=== PATIENT | female | born 1950 | race Caucasian/White ===

== ENCOUNTER 2016-06-08 22:46 | Emergency (ER) | payer MEDICARE ==
[2016-06-08 23:50] LABS: Budding Yeast Present (Absent); Urine Bacteria Absent (Absent); Urine Bilirubin Negative (Negative); Urine Glucose Negative (Negative); Urine Nitrite Negative (Negative)
[2016-06-09] MEDS ORDERED: NS 0.9% 1000 ML* 1,000 ML IV ONE ×2 (00:23→01:53)
[2016-06-09] MEDS ORDERED: Ketorolac INJ* 30 MG/ML 1 ML VIAL IV ONE (00:23)
[2016-06-09 00:41] LABS: Hematocrit 41 % (35-47); Hemoglobin 13.9 g/dl (12.0-16.0); Mean Corpuscular HGB Conc 34 g/dl (31-36); Mean Corpuscular Hemoglobin 31 pg (27-31); Mean Corpuscular Volume 90 fL (80-97); Mean Platelet Volume 8 um3 (7.4-10.4); Red Blood Count 4.51 10^6/ul (4.0-5.4); Red Cell Distribution Width 13 % (10.5-15); White Blood Count 9.9 10^3/ul (3.5-10.8)
[2016-06-09 00:59] LABS: Albumin 3.9 g/dL (3.2-5.2); BUN/Creatinine Ratio 25.9 (8-20); C Reactive Protein 9.62 mg/L (< 5.00); Calcium 9.3 mg/dL (8.6-10.3); EGFR Non-African American 70.7 (>60); Potassium 3.9 mmol/L (3.5-5.0); Total Bilirubin 0.5 mg/dL (0.2-1.0); Total Protein 6.9 g/dL (6.4-8.9)
[2016-06-09] MEDS ORDERED: Morphine INJ* 4 MG/ML 1 ML SYRINGE IV ONE (01:53)
[2016-06-09 03:39] VITALS: BP 110/64
--- NOTE | 2016-06-09 07:47 | RAD ---
CLINICAL HISTORY: Right flank pain. COMPARISON: None TECHNIQUE: Noncontrast CT examination of the abdomen and pelvis from the lung bases through the initial tuberosities. FINDINGS: VISUALIZED LUNG BASES: The visualized lung bases are grossly clear. There is no pleural effusion. ABDOMEN AND PELVIS: Evaluation of the solid organs and vasculature is limited without intravenous contrast. The liver, spleen, pancreas and adrenal glands are grossly normal in appearance. The gallbladder is normal. There are least 3 large renal calculi in the left kidney. At the lower pole there is a 1.1 cm calcification. More inferiorly there is a posteriorly located 6 mm calcification. At the mid-level there is a 5 mm calcification. There is no left-sided hydronephrosis. In the right kidney there is a 1.2 cm calcification as well as several additional punctate calcifications. At the right ureterovesical junction there is a 7 mm calcification. There is right-sided mild to moderate hydronephrosis. No calcifications are seen in the urinary bladder. The small and large bowel are not distended.The patient's normal appendix is identified in the right lower quadrant (axial image 118). There is no gross retroperitoneal or mesenteric lymphadenopathy. The pelvic viscera is normal in appearance. The abdominal aorta and iliac arteries are normal in course and diameter. Degenerative changes of the spine include multilevel intervertebral disc height loss, marginal osteophyte formation, lower lumbar level vacuum disc phenomenon as well as endplate sclerosis at L4/L5. There are no sinister appearing bone lesions. IMPRESSION: 1. Bilateral renal calculi as described above including a 7 mm calcification at the right ureterovesical junction with ipsilateral moderate hydroureter nephrosis. 2. Additional chronic and degenerative changes as described in the body of the report.
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
== END 2016-06-09 03:38 | disposition home or self-care (01) ==
LOC: ED 22:46
DX: N23 Unspecified renal colic (principal); N39.0 Urinary tract infection, site not specified; R53.1 Weakness; R50.9 Fever, unspecified; R30.0 Dysuria; R53.83 Other fatigue; R10.84 Generalized abdominal pain
CPT/HCPCS: 36415; 74176; 80053; 81003; 81015; 83605; 83690; 85025; 86140; 87086; 96374; 96375; 99284; J1885; J2270

== ENCOUNTER 2016-09-07 13:34 | Observation (INO) | payer MEDICARE ==
[2016-09-07] MEDS ORDERED: Lidocaine 4% TOPICAL* 50 ML TOP.SOLN TOPICAL ONE (14:32)
--- NOTE | 2016-09-07 14:38 | RAD ---
INDICATION: Head injury. COMPARISON: There are no prior studies available for comparison. TECHNIQUE: Contiguous axial sections of the brain were obtained from the skull base to the vertex without contrast. FINDINGS: The ventricles, cisterns and sulci are enlarged consistent with age-related atrophy. There is a small focal area of decreased density adjacent to the frontal horn of the left lateral ventricle most consistent with an old lacunar infarct. No other focal abnormalities or mass effect are seen. There is no evidence for hemorrhage. No significant focal osseous abnormality is seen. The visualized portion of the paranasal sinuses and mastoid air cells appear clear. IMPRESSION: 1. NO EVIDENCE FOR ACUTE INTRACRANIAL ABNORMALITY. 2. 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
[2016-09-07] MEDS ORDERED: ceFAZolin VIAL(*) 1 GM in NS 0.9% 50 ML* 50 ML IVPB ONE (14:43)
--- NOTE | 2016-09-07 14:45 | RAD ---
INDICATION: Trauma. COMPARISON: Comparison is made with a prior x-ray study of the cervical spine from March 20, 2016. TECHNIQUE: Contiguous axial sections were obtained from the skull base through the T1 vertebra. Images were reconstructed in the sagittal and coronal planes. FINDINGS: The vertebra are in normal alignment. No prevertebral soft tissue swelling or fracture is seen. There is spina bifida occulta posteriorly at the C1 level. At the C3-C4 level there is posterior uncinate process and moderate hypertrophic changes within the facet joint on the left side. No significant spinal canal narrowing is present. There is moderate bilateral neural foraminal narrowing. At the C4-C5 level there is posterior uncinate process spurring which is most prominent posterolaterally on the left side. There is mild spinal canal narrowing and moderate neural foraminal narrowing on the right side and moderate to severe neural foraminal narrowing on the left side. At the C5-C6 level there is posterior uncinate process spurring which causes moderate spinal canal narrowing. There is moderate to severe bilateral neural foraminal narrowing. At the C6-C7 level there is mild posterior uncinate process spurring. No significant spinal canal narrowing is present. There is mild neural foraminal narrowing on the right side and moderate neural foraminal narrowing on the left side. IMPRESSION: 1. NO EVIDENCE FOR FRACTURE OR SUBLUXATION. 2. MODERATE DIFFUSE CERVICAL SPONDYLOSIS.
--- NOTE | 2016-09-07 14:49 | RAD ---
INDICATION: Left wrist injury. TECHNIQUE: 3 views of the left wrist were obtained. FINDINGS: There is a transverse relatively severely comminuted intra-articular fracture of the distal radius. The major distal fragment is displaced one shaft diameter anterior and overriding the proximal fragment. There is also a displaced avulsion fracture of the ulnar styloid process. There is a small amount of air within the soft tissues. IMPRESSION: 1. DISPLACED, COMMINUTED, INTRA-ARTICULAR FRACTURE OF THE DISTAL RADIUS. 2. DISPLACED FRACTURE OF THE ULNAR STYLOID PROCESS.
--- NOTE | 2016-09-07 15:24 | RAD ---
INDICATION: Right knee injury. TECHNIQUE: 2 views of the right knee were obtained. FINDINGS: There is mild soft tissue swelling along the anterior aspect of the knee. There is decreased density in the inferior third of the patella possibly representing a nondisplaced fracture. No other fractures are seen. Joint spaces appear maintained. IMPRESSION: POSSIBLE NONDISPLACED FRACTURE OF THE INFERIOR ASPECT OF THE PATELLA.
[2016-09-07 15:37] LABS: Hematocrit 45 % (35-47); Mean Corpuscular HGB Conc 33 g/dl (31-36); Mean Corpuscular Hemoglobin 31 pg (27-31); Mean Corpuscular Volume 92 fL (80-97); Mean Platelet Volume 9 um3 (7.4-10.4); Red Blood Count 4.93 10^6/ul (4.0-5.4); Red Cell Distribution Width 14 % (10.5-15); White Blood Count 9.5 10^3/ul (3.5-10.8)
[2016-09-07 15:56] LABS: Albumin 4.3 g/dL (3.2-5.2); Calcium 10.2 mg/dL (8.6-10.3); Globulin 3.4 g/dL (2-4); Potassium 4.2 mmol/L (3.5-5.0); Total Bilirubin 0.7 mg/dL (0.2-1.0); Total Protein 7.7 g/dL (6.4-8.9)
[2016-09-07 16:09] LABS: BUN/Creatinine Ratio 22.9 (8-20); EGFR African American 88.2 (>60); EGFR Non-African American 68.6 (>60)
[2016-09-07] MEDS ORDERED: Midazolam* 1 MG/ML 5 ML VIAL (5 MG) ONE (16:49)
[2016-09-07] MEDS ORDERED: fentaNYL* 50 MCG/ML 5 ML VIAL (250 MCG VIAL) ONE (16:49)
[2016-09-07] MEDS ORDERED: Dexamethasone IV* 4 MG/ML 1 ML (4 MG) ONE (16:50)
[2016-09-07] MEDS ORDERED: Ondansetron INJ* 2 MG/ML VIAL ONE (16:50)
[2016-09-07] MEDS ORDERED: Famotidine IV* 10 MG/ML 2 ML (20 mg) ONE (16:50)
[2016-09-07] MEDS ORDERED: Ketorolac INJ* 30 MG/ML 1 ML VIAL ONE (16:50)
[2016-09-07] MEDS ORDERED: Lidocaine 2% PF * 5 ML VIAL ONE (16:50)
[2016-09-07] MEDS ORDERED: Propofol* 10 MG/ML 20 ML BTL IV PUSH ONE (16:50)
[2016-09-07] MEDS ORDERED: Bupivacaine 0.25% EPI 200,000* 30 ML SDV ONE (17:17)
[2016-09-07] MEDS ORDERED: oxyCODONE/Acetamin 5/325 MG* TAB PO PRN ×5 (17:22→21:07)
[2016-09-07] MEDS ORDERED: Morphine INJ* 2 MG/ML 1 ML SYRINGE IV PRN ×2 (17:22→21:00)
[2016-09-07] MEDS ORDERED: Desflurane* 240 ML INH ONE (17:33)
[2016-09-07] MEDS ORDERED: DiMENhydriNATE IV* 50 MG/ML VIAL IV PUSH PRN (17:39)
[2016-09-07] MEDS ORDERED: Ondansetron INJ* 2 MG/ML VIAL IV PRN (17:39)
[2016-09-07] MEDS ORDERED: HYDROmorphone* 1 MG/ML 1 ML SYR IV PRN (17:39)
[2016-09-07] MEDS ORDERED: fentaNYL* 50 MCG/ML 2 ML VIAL (100 MCG VIAL) IV PRN (17:39)
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
[2016-09-07] MEDS ORDERED: Silver Sulfadiazine 1%* 20 GM ONE (18:46)
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
[2016-09-07] MEDS ORDERED: clonazePAM TAB(*) 1 MG PO PRN (20:49)
[2016-09-07] MEDS ORDERED: Acetaminophen TAB* 325 MG PO PRN (21:08)
[2016-09-07] MEDS ORDERED: LORazepam TAB(*) 1 MG PO ONE (21:25)
[2016-09-07] MEDS ORDERED: Ibuprofen TAB* 800 MG PO ONE (21:57)
[2016-09-07] MEDS ORDERED: LORazepam TAB(*) 1 MG ONE (21:57)
[2016-09-07] MEDS: Ibuprofen TAB* 800 MG PO PRN (22:04)
[2016-09-07] MEDS ORDERED: HYDROmorphone* 1 MG/ML 1 ML SYR IV SLOW PU ONE (23:11)
[2016-09-07] MEDS ORDERED: HYDROmorphone* 1 MG/ML 1 ML SYR ONE (23:23)
[2016-09-07] MEDS: ceFAZolin VIAL(*) 1 GM in NS 0.9% 50 ML* 50 ML IVPB SCH (23:44)
[2016-09-08] MEDS: Ibuprofen TAB* 800 MG PO PRN (06:17)
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
[2016-09-08 06:29] LABS: HDL Cholesterol 49.5 mg/dL
[2016-09-08] MEDS: ceFAZolin VIAL(*) 1 GM in NS 0.9% 50 ML* 50 ML IVPB SCH ×2 (07:34→17:36)
[2016-09-08] MEDS: traMADol TAB* 50 MG PO PRN ×2 (07:41→16:47)
[2016-09-08] MEDS ORDERED: Acetaminop/Codeine 30 MG TAB* 1 TAB (300 MG/30 MG) PO PRN (09:41)
[2016-09-08] MEDS ORDERED: Docusate CAP* 100 MG PO PRN (10:51)
--- NOTE | 2016-09-08 11:27 | PN ---
Progress Note - Progress Note Date of Service: 09/08/16 SOAP: Subjective: []Patient seen at bedside. Alert and oriented. She complains of left wrist pain, minimal right knee pain. She takes Tramadol regularly for chronic back pain but states that is has made her dizzy. She would like to try codeine for pain. She has been up to the BR with minimal assistance. She feels she would like to go home this afternoon. Objective: [] Vital Signs Temp 98.0 F 09/08/16 07:38 Pulse 67 09/08/16 07:38 Resp 16 09/08/16 10:44 BP 106/59 09/08/16 07:38 Pulse Ox 96 09/08/16 07:38 Intake & Output 09/07/16 09/08/16 09/08/16 18:59 06:59 18:59 Intake Total 100 1600 Output Total 550 350 Balance 100 1050 -350 Weight 192 lb 193 lb Intake: IV Fluids 100 800 LR 800 Oral 800 Output: Urine 550 350 Other: # Bowel Movements 0 Estimated Blood Loss MINIMAL Comment Laboratory Results - last 24 hr 09/07/16 09/07/16 09/07/16 15:30 15:30 15:30 WBC 9.5 RBC 4.93 Hgb 15.0 Hct 45 MCV 92 MCH 31 MCHC 33 RDW 14 Plt Count 205 MPV 9 Neut % (Auto) 77.6 Lymph % (Auto) 16.3 L [place] % (Auto) 4.7 Eos % (Auto) 0.7 Baso % (Auto) 0.7 Absolute Neuts (auto) 7.4 Absolute Lymphs (auto) 1.6 Absolute Monos (auto) 0.4 Absolute Eos (auto) 0.1 Absolute Basos (auto) 0.1 Absolute Nucleated RBC 0 Nucleated RBC % 0 INR (Anticoag Therapy) 1.79 H Sodium 138 Potassium 4.2 Chloride 106 Carbon Dioxide 26 Anion Gap 6 BUN 19 Creatinine 0.83 Est GFR ( Amer) 88.2 Est GFR (Non-Af Amer) 68.6 BUN/Creatinine Ratio 22.9 H Glucose 91 Calcium 10.2 Total Bilirubin 0.70 AST 26 ALT 25 Alkaline Phosphatase 58 Total Protein 7.7 Albumin 4.3 Globulin 3.4 Albumin/Globulin Ratio 1.3 Triglycerides Cholesterol LDL Cholesterol HDL Cholesterol 09/08/16 05:32 WBC RBC Hgb Hct MCV MCH MCHC RDW Plt Count MPV Neut % (Auto) Lymph % (Auto) [place] % (Auto) Eos % (Auto) Baso % (Auto) Absolute Neuts (auto) Absolute Lymphs (auto) Absolute Monos (auto) Absolute Eos (auto) Absolute Basos (auto) Absolute Nucleated RBC Nucleated RBC % INR (Anticoag Therapy) Sodium Potassium Chloride Carbon Dioxide Anion Gap BUN Creatinine Est GFR ( Amer) Est GFR (Non-Af Amer) BUN/Creatinine Ratio Glucose Calcium Total Bilirubin AST ALT Alkaline Phosphatase Total Protein Albumin Globulin Albumin/Globulin Ratio Triglycerides 75 Cholesterol 162 LDL Cholesterol 98 HDL Cholesterol 49.5 Left UE splinted and in shoulder immobilizer, moving all digits well with minimal edema. sensation and circulation intact distally Right knee SAMANTHA is dry and intact under POKI, +DF/PF right ankle, sensation intact Assessment: []s/p irrigation, debridement and repair soft tissue right knee right open non displaced patella fracture s/p I&D with closed reduction and splinting, left intra articular distal radius/ ulnar styloid fracture POD #1 Plan: []PT/OT consults place WBAT RLE with brace on NWB LUE/ sling discharge home today f/u with Dr. Gallardo this , call for appointment
[2016-09-08 17:38] VITALS: BP 156/76
[2016-09-08] MEDS ORDERED: Enoxaparin(*) 40 MG/0.4 ML SYR SUBCUT SCH (18:00)
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
== END 2016-09-08 17:00 | disposition home or self-care (01) ==
LOC: ED 13:34 → OR 18:42 → SSU 20:06 → INTOOBSV 20:06
PROVIDERS: ADMIT Orthopaedic Surgery; ATTEND Orthopaedic Surgery
PROC: 0QSDXZZ Reposition Right Patella, External Approach (ICD-10-PCS; 2016-09-07)
PROC: 0PSJXZZ Reposition Left Radius, External Approach (ICD-10-PCS; principal; 2016-09-07 17:55)
PROC: 0PSLXZZ Reposition Left Ulna, External Approach (ICD-10-PCS; 2016-09-07 17:55)
DX: S82.001B Unspecified fracture of right patella, initial encounter for open fracture type I or II (principal); S52.502B Unspecified fracture of the lower end of left radius, initial encounter for open fracture type I or II; S52.612B Displaced fracture of left ulna styloid process, initial encounter for open fracture type I or II; S00.81XA Abrasion of other part of head, initial encounter; S00.31XA Abrasion of nose, initial encounter; V18.4XXA Pedal cycle driver injured in noncollision transport accident in traffic accident, initial encounter; Y92.410 Unspecified street and highway as the place of occurrence of the external cause; Z86.711 Personal history of pulmonary embolism; Z79.01 Long term (current) use of anticoagulants; E78.00 Pure hypercholesterolemia, unspecified; M54.5 Low back pain; G89.29 Other chronic pain; F41.9 Anxiety disorder, unspecified; Z79.899 Other long term (current) drug therapy
CPT/HCPCS: 36415; 70450; 72125; 80053; 80061; 85025; 85610; 94760; 96365; 96372; 96375; 99291; A9270-GY; G0378; J0690; J1100; J1170; J1650; J1885; J2250; J2405; J2704; J3010

== ENCOUNTER 2017-01-01 11:24 | Day surgery (SDC) | payer MEDICARE ==
[~2017-01-01 11:24] MED LIST: Buffered Lidocaine 0.9% SYRIN* 5 ML/SYR SYRINGE INTRADERM ONE; Dexamethasone IV* 4 MG/ML 1 ML (4 MG) IV SLOW PU ONE; Dexamethasone IV* 4 MG/ML 1 ML (4 MG) ONE; Famotidine IV* 10 MG/ML 2 ML (20 mg) IV ONE; Famotidine IV* 10 MG/ML 2 ML (20 mg) ONE
[2017-01-01] MEDS ORDERED: ceFAZolin 2 GM PREMIX (*) 2 GM/50 ML BAG IVPB ONE (11:37)
[2017-01-01] MEDS ORDERED: Buffered Lidocaine 0.9% SYRIN* 5 ML/SYR SYRINGE ONE (12:01)
[2017-01-01] MEDS ORDERED: Midazolam* 1 MG/ML 2 ML VIAL (2 MG) ONE (13:27)
[2017-01-01] MEDS ORDERED: fentaNYL* 50 MCG/ML 2 ML VIAL (100 MCG VIAL) ONE ×2 (13:27→14:21)
[2017-01-01] MEDS ORDERED: Bupivacaine 0.25% SDV* 30 ML ONE (13:27)
[2017-01-01] MEDS ORDERED: Lidocaine 2% PF * 5 ML VIAL ONE (13:28)
[2017-01-01] MEDS ORDERED: Propofol* 10 MG/ML 20 ML BTL IV PUSH ONE (13:28)
[2017-01-01] MEDS ORDERED: Ketorolac INJ* 30 MG/ML 1 ML VIAL ONE (14:03)
[2017-01-01] MEDS ORDERED: EPHEDrine (Pressors)* 50 MG/ML VIAL ONE (14:04)
[2017-01-01] MEDS ORDERED: Ondansetron INJ* 2 MG/ML VIAL ONE (14:16)
[2017-01-01 15:18] VITALS: BP 116/75
--- NOTE | 2017-01-02 12:12 | OP ---
OPERATIVE REPORT: DATE OF OPERATION: 01/01/17 - DAWNA DATE OF : 48 SURGEON: Bennett Gregory MD BATCH ROLLER OPERATOR: GINGER Aguayo ANESTHESIOLOGIST: Enrique Kebede MD ANESTHESIA: General. PRE-OP DIAGNOSIS: Retained left distal radius dorsal spanning plate. POST-OP DIAGNOSIS: Retained left distal radius dorsal spanning plate. OPERATIVE PROCEDURE: 1. Removal of left distal radius dorsal spanning plate and screws. 2. Removal of left radial styloid pin through a separate incision. INDICATIONS: Elva had an open distal radius fracture that was treated with dorsal spanning plate in [place] by Dr. Baeza. It has been enough time, the fracture has healed. She now comes to the operating room for removal of plate and screws and the radial styloid pin. ESTIMATED BLOOD LOSS: 2 mL. COMPLICATIONS: None. FINDINGS: As expected. DESCRIPTION OF PROCEDURE: Elva was seen in the preoperative holding area. The correct side, site, and procedure were identified. We came back to the operating room where the arm was prepped and draped in the usual fashion. A time-out was performed. I began by exsanguinating the arm with the Esmarch and the tourniquet was inflated to 250 mmHg. I then opened up her dorsal forearm wound utilizing the same incision, dissection was carried down in the plane between the proximal aspect of the first dorsal compartment muscles and the second dorsal compartment tendons was developed to expose the plate and four proximal screws were removed. I then opened up the distal incision over the dorsal second metacarpal. I came just radial to the extensor tendons and the soft tissue overlying the plate was incised longitudinally. Four distal screws were removed. I then broke up all of the adhesions with the use of a hood elevator, the plate was removed by pulling it out of the proximal wound. I then made a 1-cm incision over the radial styloid pin. Dissection was carried down sharply with the knife longitudinally. The proximal aspect of the pin was exposed. A needle lease purchase driver was used to remove the radial styloid pin. I then irrigated out all the wounds. Skin was closed with 5-0 nylon suture. Wounds were infiltrated with 0.25% plain Marcaine. The wounds were dressed with Xeroform, 4x4's, sterile Webril, and Narinder bandage. She was then woken up and taken to the recovery room in stable condition. Tourniquet was deflated after dressings were in place. [id number]/[facility] #: [id number] STAN
--- NOTE | 2017-01-02 19:09 | RAD ---
CPT II Codes: 6045F INDICATION: Traumatic left distal radius fracture Fluoroscopic services provided for referring physician. 4 seconds of fluoroscopy time was used. There has been prior hardware noted and removed. This placement of new hardware. IMPRESSION: Fluoroscopic services provided for referring physician for internal fixation distal left radius fracture with a plate and screws. Previously identified hardware has been removed.
== END 2017-01-01 15:36 | disposition home or self-care (01) ==
LOC: OREAST 11:24
PROVIDERS: ATTEND Orthopaedic Surgery Hand Surgery
DX: S52.502D Unspecified fracture of the lower end of left radius, subsequent encounter for closed fracture with routine healing (principal); X58.XXXD Exposure to other specified factors, subsequent encounter; Y92.9 Unspecified place or not applicable; Z79.01 Long term (current) use of anticoagulants; Z86.711 Personal history of pulmonary embolism; E03.9 Hypothyroidism, unspecified; E78.5 Hyperlipidemia, unspecified
CPT/HCPCS: 76000; 88300; J0690; J1100; J1885; J2250; J2405; J2704; J3010

== ENCOUNTER 2017-09-08 04:07 | Day surgery (SDC) | payer MEDICARE ==
[2017-09-08] MEDS ORDERED: Metoclopramide IV* 5 MG/ML 2 ML VIAL IV ONE (04:30)
[2017-09-08] MEDS ORDERED: NS 0.9% 1000 ML* 1,000 ML IV ONE (04:30)
[2017-09-08] MEDS ORDERED: Morphine VIAL* 4 MG/ML VIAL (1 ml vial) IV ONE (04:31)
[2017-09-08 05:08] LABS: ABS Basophils 0 10^3/ul (0-0.2); ABS Eosinophils 0.2 10^3/ul (0-0.6); ABS Lymphocytes 1.5 10^3/ul (1.0-4.8); ABS Monocytes 0.3 10^3/ul (0-0.8); ABS Neutrophils 6.4 10^3/ul (1.5-7.7); ABS Nucleated RBC 0 10^3/ul; Eosinophil % 1.9 % (0-6); Hematocrit 43 % (35-47); Hemoglobin 14.5 g/dl (12.0-16.0); Lymphocyte % 17.4 % (25-47); Mean Corpuscular HGB Conc 34 g/dl (31-36); Mean Corpuscular Hemoglobin 31 pg (27-31); Mean Corpuscular Volume 91 fL (80-97); Nucleated Red Blood Cells % 0; Platelet Count 220 10^3/ul (150-450); Red Blood Count 4.69 10^6/ul (4.00-5.40); Red Cell Distribution Width 13 % (10.5-15); White Blood Count 8.4 10^3/ul (3.5-10.8)
[2017-09-08 05:16] LABS: INR 2.13 (0.77-1.02)
[2017-09-08 05:25] LABS: EGFR Non-African American 61.5 (>60)
[2017-09-08 06:42] LABS: Urine Appearance Cloudy; Urine Blood 3+ (Negative); Urine Color Yellow; Urine Ketones Negative (Negative); Urine Protein 2+(100 mg/dL) (Negative); Urine Red Blood Cell 3+(>10/hpf) (Absent); Urine Specific Gravity 1.021 (1.010-1.030); Urine Urobilinogen Negative (Negative); Urine White Blood Cell 3+(>20/hpf) (Absent)
[2017-09-08] MEDS ORDERED: Piperacillin/Tazobac ADVAN(*) 3.375 GM in NS 0.9% 100 ML* 100 ML IVPB ONE (06:59)
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
--- NOTE | 2017-09-08 08:06 | RAD ---
Indication: Abdominal pain. CT of the abdomen and pelvis was performed without oral or IV contrast administration. Coronal and sagittal reconstructed images were obtained. Lung bases demonstrate no pleural fluid, nodules or masses. Heart is of normal size without evidence of pericardial effusion. Liver is normal in size. No focal lesions or intrahepatic ductal dilatation is noted. The gallbladder demonstrates no calcified gallstones. No pericholecystic fluid or wall thickening is noted. The spleen is normal in size. No adrenal masses are noted. The kidneys demonstrates left hydronephrosis and hydroureter. There is a calculus in the mid left ureter measuring 9 mm. The distal left ureter is collapsed. Additional calculi is noted in the left kidney measuring 8 mm in the lower pole and 9 mm in the posterior lower pole, right kidney 12 mm calcification is noted with other smaller nonobstructing calculi. Aorta is normal in size. No aneurysmal dilatation is noted. No retroperitoneal lymphadenopathy is noted. Dilated loops of bowel are noted. CT of the pelvis demonstrates uterus and ovaries to be unremarkable. No pelvic adenopathy is noted. No hernias are noted. IMPRESSION: Left hydronephrosis with 9 x 6 mm calculus in the mid left ureter. Nonobstructing calculi are noted in both kidneys.
--- NOTE | 2017-09-08 10:07 | HP ---
CC: Dr. Varghese * DATE OF PLANNED ADMISSION AND SURGERY: 09/08/2017. HISTORY OF PRESENT ILLNESS: Ms. Goodman is a 67-year-old, white female who is admitted with a proximal left ureteral calculus for cystoscopy, placement of left ureteral stent, possible ureteroscopy and laser lithotripsy. I have been following Ms. Goodman for several years because of bilateral renal calculi. In May 2010, she required a right ureteroscopy laser lithotripsy and right ureteral stent placement. She is known to have bilateral, asymptomatic, non obstructing renal calculi; no treatment was done because the patient is on long-term anticoagulation with Coumadin because of a history of pulmonary embolism. She was doing fine until early this morning when she presented to the emergency room with symptoms of left renal colic. This was associated with nausea and vomiting. She did not have any fever, chills, voiding symptoms, or gross hematuria. In the emergency room, she had a noncontrast CT of the abdomen and pelvis which showed left hydroureteronephrosis caused by a 1 cm calculus in the proximal left ureter. There were two nonobstructing left renal calculi measuring 1 cm each in a mid and lower pole calices. She also had a 12 mm calculus in the lower pole calyx of the right kidney. No right hydronephrosis. Her lab work in the emergency room showed a creatinine of 0.9. Her white count was normal. Her urine analysis was positive for blood, for white cells, and esterase, negative nitrite. She was afebrile on admission. PAST MEDICAL HISTORY AND SYSTEM REVIEW: The patient has hypothyroidism and is on thyroid replacement. She has a history of pulmonary embolism and she is maintained on chronic anticoagulation with Warfarin. She has hyperlipidemia, on Simvastatin 40 mg daily. She has a history of anxiety and depression. She is a nonsmoker. ALLERGIES: THE PATIENT REPORTS HAVING INTOLERANCE TO CIPRO. PHYSICAL EXAMINATION GENERAL: Overweight, white female who is in moderate pain. VITAL SIGNS: She is afebrile. Blood pressure 140/70. LUNGS: Clear. HEART: Regular and rhythmic, no murmurs. ABDOMEN: Soft, no masses, no tenderness. She has mild left CVA tenderness. EXTREMITIES: Normal. IMPRESSION: Left renal colic secondary to a 1 cm calculus in the proximal left ureter. Bilateral nonobstructing renal calculi. History of pulmonary embolism, on chronic anticoagulation with Warfarin. PLAN: Cystoscopy and placement of left ureteral stent. If the stone has migrated further down and reachable, a left ureteroscopy might be performed. It is likely that she will require left ureteroscopy and laser lithotripsy at a later date after making sure that the urinary tract infection is resolved. I discussed the above plans in detail with the patient. All of her questions were answered. [id number]/[facility] #: [id number] STAN
[2017-09-08] MEDS ORDERED: Buffered Lidocaine 0.9% SYRIN* 5 ML/SYR SYRINGE INTRADERM ONE (16:30)
[2017-09-08] MEDS ORDERED: Sodium Citrate/Citric Acid* 15 ML UDC PO ONE (16:30)
[2017-09-08] MEDS ORDERED: Dexamethasone IV* 4 MG/ML 1 ML (4 MG) IV SLOW PU ONE (16:30)
[2017-09-08] MEDS ORDERED: Ondansetron INJ* 2 MG/ML VIAL IV ONE (16:30)
[2017-09-08] MEDS ORDERED: Propofol* 10 MG/ML 20 ML BTL IV PUSH ONE ×2 (16:31→18:30)
[2017-09-08] MEDS ORDERED: Midazolam* 1 MG/ML 2 ML VIAL (2 MG) ONE ×2 (17:51→20:10)
[2017-09-08] MEDS ORDERED: fentaNYL* 50 MCG/ML 2 ML VIAL (100 MCG VIAL) ONE ×2 (17:51→20:10)
[2017-09-08] MEDS ORDERED: Iohexol 180 (CONTRAST) 10 ML SDV IV ONE (17:52)
[2017-09-08] MEDS ORDERED: Lidocaine 2% PF * 5 ML VIAL ONE (18:30)
[2017-09-08] MEDS ORDERED: Dexamethasone IV* 4 MG/ML 1 ML (4 MG) ONE (18:30)
[2017-09-08] MEDS ORDERED: Famotidine IV* 10 MG/ML 2 ML (20 mg) ONE (18:30)
[2017-09-08] MEDS ORDERED: Ondansetron ODT TAB* 4 MG PO PRN (18:39)
[2017-09-08] MEDS ORDERED: Naloxone* 0.4 MG/ML 1 ML VIAL IV PRN (18:39)
[2017-09-08] MEDS ORDERED: DiMENhydriNATE IV* 50 MG/ML VIAL IV PUSH PRN (18:39)
[2017-09-08] MEDS ORDERED: fentaNYL* 50 MCG/ML 2 ML VIAL (100 MCG VIAL) IV PRN (18:39)
[2017-09-08] MEDS ORDERED: Acetaminophen TAB* 325 MG PO PRN (18:39)
--- NOTE | 2017-09-08 19:06 | RAD ---
INDICATION: LEFT ureteral stent placement. COMPARISON: CT abdomen of the same date. TECHNIQUE: 11 seconds fluoroscopy. FINDINGS: Spot images document LEFT retrograde pyelogram with moderately severe caliectasis and placement of a LEFT ureteral stent. IMPRESSION: Procedural fluoroscopy. CPT II Codes: G9500
[2017-09-08 19:55] VITALS: BP 133/81
--- NOTE | 2017-09-08 20:02 | RAD ---
Indication: Cystogram and LEFT ureteral stent placement. Comparison: No relevant prior exams available on the [facility] PACS for comparison. Technique: Supine view of the abdomen. REPORT AND IMPRESSION: LEFT ureteral stent in place. Bilateral intrarenal collecting system stones appear unchanged compared with the CT of the same date. The proximal LEFT ureteral stone is no longer visualized. Unremarkable soft tissue contours and bowel gas pattern.
--- NOTE | 2017-09-09 12:00 | ED ---
Domenic Dean Angela, scribed for Ignacio Giang MD on 09/08/17 at 0712 . Progress - Progress Note Progress Note: This pt was signed out by Dr. Baeza at shift change, pending disposition, awaiting Dr. Armstrong's consult. CT Abdomen/Pelvis, as read by radiologist IMPRESSION: Left hydronephrosis with 9 x 6 mm calculus in the mid left ureter. Nonobstructing calculi are noted in both kidneys. Dr. Giang has reviewed this radiology report. Re-Evaluation - Re-Evaluation First Eval Re-Evaluation Time: 08:14 Comment: Dr. Armstrong, urologist, in to see the pt. Course/Dx - Course Course Of Treatment: Dr. Armstrong came and evaluated the pt. After his evaluation, Dr. Armstrong reprots he will take the pt to the OR this afternoon. Pt will be admitted to [facility]. - Diagnoses Provider Diagnoses: Left ureteral calculus Discharge - Sign-Out/Discharge Documenting (check all that apply): Discharge/Admit/Transfer - Admit, Receiving Sign-Out Receiving patient FROM: Mansi Baeza - Discharge Plan Condition: Stable Disposition: ADMITTED TO [facility] - Billing Disposition and Condition Condition: STABLE Disposition: Admitted to [facility] The documentation as recorded by the Domenic arreola Angela accurately reflects the service I personally performed and the decisions made by , Ignacio Giang MD.
--- NOTE | 2017-10-02 04:02 | OP ---
DATE OF OPERATION: 09/08/17 - [facility] DATE OF : 48 SURGEON: Jose Alfredo Armstrong MD ANESTHESIOLOGIST: Samina Figueroa MD ANESTHESIA: General. PRE-OP DIAGNOSES: 1. Proximal left ureteral calculus (1 cm). 2. Bilateral nonobstructing renal calculi. POST-OP DIAGNOSIS: 1. Proximal right ureteral calculus (1 cm.) 2. Bilateral nonobstructing renal calculi. OPERATIVE PROCEDURE: 1. Cystoscopy. 2. Left retrograde pyelography and placement of left ureteral stent (6-Uzbek). INDICATIONS: Ms. Goodman is a 67-year-old white female who is a known to have bilateral renal calculi. The stones have been observed because they have been asymptomatic, and pt on warfarin because of history of pulmonary embolism. She presented this morning to the emergency room with symptoms of left renal colic and had a noncontrast CT of the abdomen and pelvis, which showed a 1 cm obstructing calculus in the proximal left ureter, and bilateral nonobstructing renal calculi. Because of the above history and findings and the size of the obstructing left ureteral stone, the patient is taken to the operating room on an urgent basis for placement of left ureteral stent. PATHOLOGY AT CYSTOSCOPY: The bladder mucosa looked normal. There were no suspicious bladder lesions seen. At fluoroscopy, a 1-cm radiopaque calculus was noted in the proximal to mid left ureter. Upon left retrograde pyelography, there was moderate to severe left hydronephrosis. The urine from the left kidney looked concentrated but not cloudy. DESCRIPTION OF PROCEDURE: After successful general anesthesia, the patient was placed in the lithotomy position and was prepped and draped for a cystoscopy. Cystoscopy was performed. The bladder was carefully inspected and the above findings were noted. A hybrid guidewire was then introduced into the left orifice and positioned in the area of the renal pelvis. A left retrograde pyelography was performed. A size 6- Uzbek stent was then placed with the proximal end coiling in the renal pelvis and the distal end coiling inside the bladder. There was good drainage of contrast from the kidney and no extravasation. The patient tolerated the procedure well and left the operating room in good condition. The plan is to obtain a KUB postoperatively. The patient will require a left ureteroscopy and laser lithotripsy at a later date for definitive treatment of the obstructing ureteral calculus. [id number]/[facility] #: [id number] [facility]
== END 2017-09-08 20:03 | disposition home or self-care (01) ==
LOC: ED 04:07 → OR 11:57
PROVIDERS: ATTEND Urology
DX: N13.2 Hydronephrosis with renal and ureteral calculous obstruction (principal); R10.32 Left lower quadrant pain; Z87.442 Personal history of urinary calculi; R11.10 Vomiting, unspecified; E03.9 Hypothyroidism, unspecified; E78.5 Hyperlipidemia, unspecified; F41.8 Other specified anxiety disorders; Z86.711 Personal history of pulmonary embolism; Z79.01 Long term (current) use of anticoagulants
CPT/HCPCS: 36415; 74018; 74176; 74420; 80053; 81003; 81015; 82150; 83690; 85025; 85610; 85730; 86140; 87086; 99285; C1876; J1100; J2250; J2270; J2543; J2704; J2765; J3010

== ENCOUNTER → 2017-09-14 06:10 | Day surgery (SDC) | payer MEDICARE ==
--- NOTE | 2017-09-11 11:30 | HP ---
CC: Dr. Varghese HISTORY AND PHYSICAL: DATE OF PLANNED ADMISSION AND SURGERY: 09/14/17 HISTORY OF PRESENT ILLNESS: Ms. Goodman is a 67-year-old white female who is admitted with a left ureteral calculus, status post placement left ureteral stent for cystoscopy, left ureteroscopy, laser lithotripsy, and left ureteral stent exchange. Please refer to the detailed history and physical on Ms. Goodman's admission dated 09/08/17. The patient presented with on 09/08/2017 with symptoms of left renal colic and CT showed an obstructing 1 cm calculus in the proximal left ureter, and bilateral non obstructing renal calculi. Her urine showed some white cells. She did not have any fever or chills. She is on chronic anticoagulation with warfirin because of history of P.E. She underwent cystoscopy and urgent placement of left ureteral stent on . Postoperative KUB showed bilateral nonobstructing renal calculi and a faint calculus in the proximal left ureter adjacent to the ureteral stent. She was placed postoperatively on Bactrim. It gave her GI upset, nausea & vomiting and feeling of chillness. Her INR was noted to be elevated at 3.4 and the Bactrim was discontinued and she is going to be off the Coumadin for a few days. No other changes in her health. Repeat physical examination is within normal with normal vital signs and afebrile. She is on all her previous medications. Impression: Left ureteral calculus, status post placement Lt ureteral stent. Bilateral non obstructing renal calculi. History of pulmonary embolism on chronic anticoagulation. The plan is to proceed with cystoscopy, left ureteroscopy, and laser lithotripsy with left ureteral stent exchange. Because of the history of pulmonary embolism, the plan is to do the procedure while she is on warfarin. I discussed the above plans with the patient. All her questions were answered. [id number]/[facility] #: [id number] [facility]PITALBriana
[~2017-09-14 06:10] MED LIST changes: +Acetaminophen TAB* 325 MG PO PRN; +Buffered Lidocaine 0.9% SYRIN* 5 ML/SYR SYRINGE ONE; -Dexamethasone IV* 4 MG/ML 1 ML (4 MG) IV SLOW PU ONE; +EPHEDrine (Pressors)* 50 MG/ML VIAL ONE; +EPINEPHRINE 1 MG/ML 1 ML VIAL ONE; -Famotidine IV* 10 MG/ML 2 ML (20 mg) IV ONE; -Famotidine IV* 10 MG/ML 2 ML (20 mg) ONE; +Iohexol 180 (CONTRAST) 10 ML SDV IV ONE; +Ketorolac INJ* 30 MG/ML 1 ML VIAL ONE; +Lidocaine 2% PF * 5 ML VIAL ONE; +Metoclopramide IV* 5 MG/ML 2 ML VIAL IV PRN; +Midazolam* 1 MG/ML 2 ML VIAL (2 MG) ONE; +Midazolam* 1 MG/ML 5 ML VIAL (5 MG) ONE; +Naloxone* 0.4 MG/ML 1 ML VIAL IV PRN; +Ondansetron ODT TAB* 4 MG ONE; +Oxybutynin TAB* 5 MG ONE; +Phenylephrine INJ* 10 MG/ML 1 ML VIAL (10 MG) ONE; +Propofol* 10 MG/ML 20 ML BTL IV PUSH ONE; +Sevoflurane* 1 BTL ONE; +Sterile Water for Inj* 10 ML ONE; +Sterile Water for Inj* 20 ML ONE; +Succinylcholine* 20 MG/ML 10 ML VIAL ONE; +cefTRIAXone(*) 2 GM ADDV.VIAL IVPB ONE; +cefTRIAXone(*) 2 GM in NS 0.9% 100 ML* 100 ML IVPB ONE; +fentaNYL* 50 MCG/ML 2 ML VIAL (100 MCG VIAL) IV PRN; +fentaNYL* 50 MCG/ML 2 ML VIAL (100 MCG VIAL) ONE
[2017-09-14 07:13] LABS: INR 1.4 (0.77-1.02)
--- NOTE | 2017-09-14 09:12 | RAD ---
INDICATION: Left ureteroscopy /lithotripsy /stent exchange COMPARISON: KUB September 11, 2017 FINDINGS: 6 seconds of fluoroscopy were provided for the urology department. Fluoroscopic spot imaging of the abdomen were obtained for operative control. A final images demonstrate placement of a left ureteral stent in expected position. CPT II Codes: G9500 (fluoro time doc)
[2017-09-14 10:02] VITALS: BP 111/62
--- NOTE | 2017-09-14 13:14 | OP ---
CC: Dr. Varghese * DATE OF OPERATION: 09/14/17 - [facility] DATE OF : 48 SURGEON: Jose Alfredo Armstrong MD ANESTHESIOLOGIST: Dr. Arriaga. ANESTHESIA: General. PRE-OP DIAGNOSES: 1. Proximal left ureteral calculus (1 cm). 2. Status post placement of left ureteral stent. POST-OP DIAGNOSES: 1. Proximal left ureteral calculus (1 cm). 2. Status post placement of left ureteral stent. OPERATIVE PROCEDURE: 1. Cystoscopy. 2. Left ureteroscopy and laser lithotripsy of proximal left ureteral calculus. 3. Left retrograde pyelography and placement of left ureteral stent (6-Beninese). INDICATION FOR PROCEDURE: Ms. Goodman is a 67-year-old white female who is a known stone former and whose stones have been observed because she is on Coumadin because of history of pulmonary embolism. She has been asymptomatic until a week ago when she presented with symptoms of left renal colic. CT showed an 1 cm obstructing calculus in the proximal left ureter and bilateral nonobstructing renal calculi. The patient had urgent placement of a left ureteral stent one week ago. She is now admitted for definitive treatment of the stone. The patient is still on anticoagulation with Coumadin. PATHOLOGY AT CYSTOSCOPY: There was bloody urine coming from the left orifice around the stent. Upon left ureteroscopy, an 1-cm calculus was noted in the proximal left ureter about 3 cm distal to the ureteropelvic junction. The calculus was impacted. It had the gross appearance of a calcium oxalate stone. There was hyperemia and edema of the ureteral mucosa adjacent to the stone. The stone fragmented easily with the laser. DESCRIPTION OF PROCEDURE: After successful general anesthesia, the patient was placed in the lithotomy position and was prepped and draped for cystoscopy. Cystoscopy was performed and the bladder was inspected. The distal limb of the left ureteral stent was brought out to the level of the urethral meatus. A hybrid flexible tip guidewire was introduced into the lumen of the stent and the proximal end was positioned in the renal pelvis and the stent was removed. The guidewire was kept in place. A size 6.5 semirigid ureteroscope was then introduced inside the bladder and passed without difficulty inside the left ureter along side the guidewire. The calculus was identified. Using a 550 micron laser fiber, the stone was gently broken into smaller fragments, then disimpacted. Using the spiral basket, the larger fragments were extracted and sent for stone analysis. A final inspection showed no residual stone fragments. There was edema and hyperemia in the ureteral wall adjacent to the stone, but there was no evidence of any ureteral perforation. Retrograde pyelography was then performed. A size 6- Beninese stent was then placed with the proximal end coiling in the renal pelvis and the distal end coiling inside the bladder. There was good drainage of contrast from the kidney and no extravasation. The patient tolerated the procedure well and left the operating room in good condition. The plan is to keep the stent in place for about 10 days and to be removed in the office under local anesthesia. [id number]/[facility] #: [id number] STAN
== END | disposition home or self-care (01) ==
LOC: OR 06:10
PROVIDERS: ATTEND Urology
DX: N20.2 Calculus of kidney with calculus of ureter (principal); Z87.442 Personal history of urinary calculi; Z86.711 Personal history of pulmonary embolism; Z79.01 Long term (current) use of anticoagulants; E78.5 Hyperlipidemia, unspecified; E03.9 Hypothyroidism, unspecified
CPT/HCPCS: 36415; 74420; 82365; 85610; 88300; A9270-GY; C1876; J0330; J0696; J1100; J1885; J2250; J2704; J3010

== ENCOUNTER → 2018-10-15 | Day surgery (SDC) | payer MEDICARE ==
--- NOTE | 2018-10-13 00:17 | HP ---
CC: Dr. Va Zamarripa * HISTORY AND PHYSICAL: DATE OF PLANNED ADMISSION AND SURGERY: 10/15/18 HISTORY OF PRESENT ILLNESS: Ms. Goodman is a 68-year-old white female who is admitted with multiple proximal left ureteral calculi for cystoscopy, left ureteroscopy, laser lithotripsy and left ureteral stent insertion. Ms. Goodman is a known stone former and had required several endoscopic procedures over the last several years. The last procedure was performed one year ago and at that time, she underwent a left ureteroscopy and laser lithotripsy of a 1-cm proximal left ureteral calculus. She was then noted to have residual bilateral renal calculi. The calculi were observed because she was asymptomatic and because she was on warfarin because of history of pulmonary embolism. The patient has continued to do well and presented earlier this week for her routine follow-up renal ultrasound. The renal ultrasound done in the office showed no left renal calculi and there was [id number]-[id number] left hydronephrosis and 1.2 cm echogenic foci located in the proximal left ureter about 4 cm distal to the ureteropelvic junction. Also was noted a non-obstructing 1.6-cm calculus in the upper pole of the right kidney. Bilateral ureteral jets were noted. The patient then had a KUB and a noncontrast CT of the abdomen and pelvis. The CT confirmed the presence of a nonobstructing 1.7 cm calculus in the upper pole of the right kidney, [id number] left hydronephrosis and 3 calculi noted in the proximal left ureter. The calculi total size was about 1.2 cm. No other abnormal renal or ureteral calcifications were noted. The study also showed an incidental finding of a 3.5 cm cystic mass of the head of the pancreas. It seems to have increased in size compared to her CT's 1 year and 2 years ago. There was no dilatation of the pancreatic duct or of the biliary duct. No retroperitoneal lymphadenopathy was noted. The radiologist recommended obtaining additional imaging with contrast for better visualization of that pancreatic mass. The patient denies any symptoms of abdominal pain or weight loss or jaundice. PAST MEDICAL HISTORY AND SYSTEM REVIEW: The patient has history of pulmonary embolism that occurred several years ago. She had been maintained on chronic anticoagulation with warfarin. She has hypothyroidism, on thyroid replacement. She has hyperlipidemia, maintained on simvastatin 40 mg daily. She takes tramadol as needed for pain and clonazepam 1 mg at bedtime. ALLERGIES: She denies any allergies to medications, but she reports having intolerance to Cipro. FAMILY HISTORY: Negative. SOCIAL HISTORY: She is a nonsmoker. She denies any recreational drug use. PHYSICAL EXAMINATION GENERAL: Overweight white female, who is in no pain and who has no jaundice. VITAL SIGNS: Blood pressure 120/80, pulse of 80. LUNGS: Clear. HEART: Regular and rhythmic, no murmurs. ABDOMEN: Soft. No masses, no tenderness, and no CVA tenderness. EXTREMITIES: Legs show no edema. IMPRESSION: 1. Asymptomatic left hydronephrosis with total of 3 calculi measuring a total of 1.2 cm located in the proximal left ureter. 2. Nonobstructing 1.7-cm calculus of the right kidney. 3. History of pulmonary embolism, on chronic anticoagulation. 4. 3.5 cm cystic mass in the head of the pancreas, noted on previous CT's but seems to have increased in size, without associated biliary or pancreatic duct dilatations. PLAN: Plan is for cystoscopy, left ureteroscopy and laser lithotripsy with placement of left ureteral stent. The procedure might be staged if there is difficulty extracting all the ureteral calculi or difficulty reaching the proximal ureter. The patient will need additional imaging either with CT with contrast for better visualization of the pancreatic cystic mass. I discussed the urological plans with the patient. Some of the potential complications including hematuria and residual ureteral calculi. All her questions were answered. [id number]/[facility] #: [id number] M[facility]D
[~2018-10-15] MED LIST changes: -Buffered Lidocaine 0.9% SYRIN* 5 ML/SYR SYRINGE INTRADERM ONE; -Buffered Lidocaine 0.9% SYRIN* 5 ML/SYR SYRINGE ONE; +Buffered Lidocaine 1% SYRIN* 1 ML/SYRINGE INTRADERM ONE; +DiMENhydriNATE IV* 50 MG/ML VIAL IV PUSH PRN; -EPINEPHRINE 1 MG/ML 1 ML VIAL ONE; +Lactated Ringers 1000 ML Bag* 1,000 ML IV SCH; -Metoclopramide IV* 5 MG/ML 2 ML VIAL IV PRN; +Metoclopramide IV* 5 MG/ML 2 ML VIAL ONE; -Midazolam* 1 MG/ML 5 ML VIAL (5 MG) ONE; +Morphine 4 MG/ML VIAL (1 ml) 4 MG/ML VIAL IV PRN; +Ondansetron INJ* 2 MG/ML VIAL ONE; -Ondansetron ODT TAB* 4 MG ONE; -Oxybutynin TAB* 5 MG ONE; +Phenylephrine 40 MCG/ML SYRINGE ONE; -Phenylephrine INJ* 10 MG/ML 1 ML VIAL (10 MG) ONE; -Propofol* 10 MG/ML 20 ML BTL IV PUSH ONE; +Propofol* 10 MG/ML 20 ML BTL ONE; -Sevoflurane* 1 BTL ONE; -Sterile Water for Inj* 10 ML ONE; -Sterile Water for Inj* 20 ML ONE; -Succinylcholine* 20 MG/ML 10 ML VIAL ONE; -cefTRIAXone(*) 2 GM in NS 0.9% 100 ML* 100 ML IVPB ONE; -fentaNYL* 50 MCG/ML 2 ML VIAL (100 MCG VIAL) IV PRN
[2018-10-15 14:21] VITALS: BP 121/66
--- NOTE | 2018-10-15 16:36 | OP ---
CC: Dr. Va Zamarripa * DATE OF OPERATION: 10/15/18 - [facility] DATE OF : 48 SURGEON: Jose Alfredo Armstrong MD. ANESTHESIOLOGIST: Dr. Gertrudis Arriaga. ANESTHESIA: General. PRE-OP DIAGNOSIS: Left ureteral calculi (3 calculi, about 1 cm each). POST-OP DIAGNOSES: 1. One proximal ureteral calculus. 2. Two left renal calculi. OPERATIVE PROCEDURE: 1. Cystoscopy. 2. Left ureteroscopy and laser lithotripsy of left ureteral calculus (1 cm). 3. Left pyeloscopy and laser lithotripsy of 2 left renal calculi (1 cm each). 4. Left retrograde pyelography and left ureteral stent insertion (8-Venezuelan). INDICATION FOR PROCEDURE: Ms. Goodman is a 68-year-old stone former, who was noted on her recent visit to the office to have 3 proximal left renal calculi measuring just under 1 cm each associated with mild left hydronephrosis. She is on anticoagulation with warfarin because of history of pulmonary embolism. The patient is in brought today for treatment of the above calculi. PATHOLOGY: At cystoscopy, the bladder mucosa looked normal. There were no suspicious bladder lesions seen. The ureteral orifices looked normal. At fluoroscopy, there were 2 calculi noted in the proximal left ureter measuring about 1 cm each and another calculus in an upper pole calyx. At ureteroscopy, the proximal ureteral calculus was impacted and there was significant degree of edema of the adjacent ureteral mucosa. DESCRIPTION OF PROCEDURE: After successful general anesthesia, the patient was placed in the lithotomy position and was prepped and draped for a cystoscopy. Cystoscopy was performed. The bladder was inspected and the above findings were noted. A flexible-tip guidewire was then introduced into the left orifice and positioned in the area of the renal pelvis. Following placement of the guidewire, the more proximal ureteral calculus migrated into the area of the renal pelvis. A size 6.5 semi-rigid ureteroscope was then introduced inside the bladder. A flexible-tipped basket was introduced through the port of the ureteroscope and the flexible tip was passed inside the left ureter alongside the guidewire. That allowed the atraumatic introduction of the ureteroscope inside the ureter. The more distal calculus was visualized and the basket was introduced beyond the calculus and the basket was deployed to prevent proximal migration of the calculus. A size 550 micron laser fiber was introduced through the other port of the ureteroscope. The calculus was then broken into multiple fragments. Care was taken not to injure the ureteral wall. After good fragmentation of the stone, the fragments were extracted with the basket and sent for stone analysis. Inspection of the ureteral wall at the site of the calculus and the laser lithotripsy showed edema and abrasion of the mucosa from the chronic impaction of the stone, but there was no evidence of any perforation or ureteral injury. The ureteroscope was then introduced all the way inside the renal pelvis. The calculus in the renal pelvis was visualized and was engaged in the basket and brought to the level of the ureteropelvic junction. The laser fiber was then reintroduced through the other port of the ureteroscope. With the stone engaged and stabilized in the basket, it was broken with laser energy into multiple fragments. All the fragments were then extracted and sent for stone analysis. Attention was then directed to the calculus in a mid to upper pole calyx. Decision was made to proceed with flexible ureteroscopy. The size 12-14 Venezuelan access sheath was then introduced over the guidewire without difficulty, and positioned in the proximal ureter. The flexible ureteroscope was then introduced through the access sheath and the renal pelvis was entered and the ureteroscope introduced into the mid upper calyx where the calculus was visualized. Using the 365 micron laser fiber, the calculus was then fragmented into at least 2 pieces. The fragments then dropped into the mid pole calyces. By that time, because of the instrumentation and because the patient was on anticoagulation, there was oozing of blood making visualization of the stone fragments suboptimal. It was decided at this time to stop the procedure. The ureteroscope was removed and the guidewire was reintroduced inside the renal pelvis and the access sheath removed. Retrograde pyelography was performed demonstrating the proximal third of the ureter and the collecting system. No extravasation was noted. A size 8- Venezuelan stent was then passed with the proximal end coiling in the renal pelvis and the distal end coiling inside the bladder. There was good drainage of contrast from the kidney and no extravasation. The patient tolerated the procedure well and left the operating room in good condition. [id number]/[facility] #: [id number] STAN
== END | disposition home or self-care (01) ==
LOC: OR 09:43
PROVIDERS: ATTEND Urology
DX: N13.2 Hydronephrosis with renal and ureteral calculous obstruction (principal); Z87.442 Personal history of urinary calculi; E03.9 Hypothyroidism, unspecified; E78.5 Hyperlipidemia, unspecified; Z86.711 Personal history of pulmonary embolism; Z79.01 Long term (current) use of anticoagulants; K86.89 Other specified diseases of pancreas
CPT/HCPCS: 74420; 82365; 88300; J0696; J1100; J1885; J2250; J2405; J2704; J2765; J3010

== ENCOUNTER 2019-06-22 10:33 | Day surgery (SDC) | payer OTHER ==
--- OUTSIDE RECORDS SUMMARY | 2019-06-22 10:47 | XMS REPORT | Continuity of Care Document ---
:1950 External Reference #:[id number] Author Name Mohsen Cruz M.D. Address [address] [place] [address] Care Team Providers Name Role Phone Va Zamarripa M.D. - Family Medicine Care Team Information Head Start Director Bennett Gregory MD - Orthopaedic Care Team Information Head Start Director Surgery Kia Estevez - Pulmonary Disease Care Team Information Head Start Director Enrique Harris MD - Gastroenterology Care Team Information Head Start Director [phone] [facility] Physical Care Team Information Head Start Director [phone] Therapy - Physical Therapy Jose Alfredo Armstrong - Urology Care Team Information Head Start Director [phone] Navi Blanco - Gastroenterology Care Team Information Head Start Director Davina Carpio MD - Orthopaedic Care Team Information Head Start Director [phone] Surgery Problems Active Problems Provider Date Mixed hyperlipidemia Kiko Varghese M.D. Onset: 09/25/2016 Hypothyroidism Kiko Varghese M.D. Onset: 09/25/2016 Pulmonary embolism Kiko Varghese M.D. Onset: 09/25/2016 Note: recurring Long-term current use of anticoagulant Va Zamarripa M.D. Onset: 05/04/2018 Obesity Va Zamarripa M.D. Onset: 05/04/2018 Insomnia Va Zamarripa M.D. Onset: 05/04/2018 Kidney stone Va Zamarripa M.D. Onset: 10/13/2018 Mass of pancreas Va Zamarripa M.D. Onset: 10/13/2018 Plantar fascial fibromatosis Va Zamarripa M.D. Onset: 02/22/2019 Mild cognitive disorder Va Zamarripa M.D. Onset: 12/06/2018 Hyperlipidemia Va Zamarripa M.D. Onset: 12/06/2018 Social History Type Date Description Comments Sex Unknown Tobacco Use Start: Unknown Nonsmoker ETOH Use Rare Tobacco Use Start: Unknown Patient has never smoked Smoking Status Reviewed: 12/06/18 Patient has never smoked Exercise Exercises regularly 30 min a day cardio Type/Frequency Allergies, Adverse Reactions, Alerts Active Allergies Reaction Severity Comments Date Cipro causes depression 09/25/2016 Medications Active Medications SIG Qnty Indications Ordering Date Provider Cyclobenzaprine HCL take one tablet 30tabs Va Zamarripa, 12/06/2018 10mg by mouth every 8 M.D. Tablets hours as needed Clonazepam use 1/2 to 1 90tabs Va Zamarripa, 12/26/2016 2mg Tablets tablet three M.D. times a day as needed [place] Thyroid compounded 180tabs Va Zamraripa, 10/15/2016 30mg thyroid 1/2 grain M.D. Tablets Warfarin Sodium take 1 tablet by 90tabs Va Zamarripa, 5mg mouth every day M.D. Tablets Simvastatin take 1 tablet by 90tabs Va Zamarripa, 40mg Tablets mouth at bedtime M.D. History Medications Lovenox 100mg twice a day 10ml Ricki T. 05/13/2019 - 100mg/ml until inr MD Henok 05/31/2019 Solution therapeutic Orphenadrine Citrate take one tablet by 30tabs Va Zamarripa M.D. 2018 - ER mouth twice a day 12/06/2018 100mg Tablets ER as needed 12HR Immunizations Description No Information Available Vital Signs Date Vital Result Comment 05/31/2019 5:17pm BP Systolic 122 mmHg BP Diastolic 80 mmHg Body Temperature 98.2 F Respiratory Rate 20 /min 03/23/2019 3:35pm BP Systolic 118 mmHg BP Diastolic 70 mmHg Heart Rate 76 /min Body Temperature 98.0 F Respiratory Rate 16 /min Height 65.5 inches 5'5.50" Weight 215.00 lb BMI (Body Mass Index) 35.2 kg/m2 Results Test Acquired Date Facility Test Result H/L Range Note Laboratory test 05/31/2019 [facility] 1.9 Low 2.0-3.0 finding (607)- - Laboratory test 05/27/2019 [facility] 1.2 Low 2.0-3.0 finding (607)- - Laboratory test 05/23/2019 [facility]) 0.9 Low 2.0-3.0 finding (607)- - Laboratory test 05/12/2019 [facility] ([facility]) 2.3 2.0-3.0 finding (607)- - Laboratory test 04/14/2019 [facility]) 2.7 2.0-3.0 finding (607)- - Laboratory test 03/17/2019 [facility] ([facility]) 2.4 2.0-3.0 finding (607)- - Laboratory test 02/17/2019 [facility] ([facility]) 3.0 High 0.9-1.1 finding (607)- - Laboratory test 01/20/2019 [facility] ([facility]) 2.1 2.0-3.0 finding (607)- - Laboratory test 01/13/2019 [facility] ([facility]) 1.5 Low 2.0-3.0 finding (607)- - Laboratory test 12/31/2018 [facility] [place] 19-9 11 U/mL 0-35 1, 2 finding [address] [place] [address] (607)- - Comprehensive 12/23/2018 [facility] Aleyda(a) Sodium 140 mEq/L 134-149 Metabolic Prof Potassium 4.8 mEq/L 3.6-5.5 Chloride 105 mEq/L 94-112 Carbon Dioxide 28 mEq/L 21-32 Glucose 97 mg/dL 70-105 BUN 21 mg/dL 6-26 Creatinine 0.9 mg/dL 0.6-1.4 BUN/Creat Ratio 23.3 CALC 8.0-36.0 Calcium 9.0 mg/dL 8.6-10.2 Total Protein 6.8 g/dL 6.4-8.3 Albumin 4.3 g/dL 3.8-5.5 Globulin 2.5 g/dL 2.0-4.8 A/G Ratio 1.7 CALC 0.6-2.3 Alk. Phosphatase 71 U/L 30-110 Alt (SGPT) 26 U/L 7-35 Ast (Sgot) 20 U/L 5-34 Total Bilirubin 0.5 mg/dL 0.2-1.3 GFR Non- >60 ml/min/1.73m^ >=60 GFR >60 ml/min/1.73m^ >=60 Lipid Profile 12/23/2018 Taiwo Maynard([facility]) Cholesterol 207 mg/dL High 120-200 Triglycerides 117 mg/dL 30-200 HDL Cholesterol 65 mg/dL 30-85 LDL (Calculated) 119 CALC 0-129 VLDL Cholesterol 23 mg/dL 0-50 HDL Risk Factor 3.2 CALC 0.0-4.4 Laboratory test finding 12/23/2018 Taiwo Aleyda([facility]) TSH 2.29 mIU/L 0.50-6.00 Free T4 0.76 ng/dL 0.75-1.54 CBC Electronic a 12/23/2018 Taiwo Aleyda([facility]) WBC 5.8 x10^3/UL 4.0- 10.0 RBC 4.81 x10^6/UL 3.93-6.00 HGB 14.8 g/dL 12.0-17.0 HCT 45 % 35-50 MCV 94.0 fL 80.0-95.0 MCH 30.8 pg 25.6-32.2 MCHC 32.7 g/dL 32.2-36.0 RDW-CV 12.6 % 11.6-14.4 PLT 248 x10^3/UL 163-400 MPV 9.3 fL Low 9.4-12.4 Eyad# 3.70 x10^3/UL 1.56-6.13 Lymph# 1.50 x10^3/UL 1.18-3.74 [place]# 0.41 x10^3/UL 0.24-0.82 Eos # 0.1 x10^3/UL 0.0-0.5 Baso # 0.02 x10^3/UL 0.01-0.08 Eyad% 64.4 % 34.0-70.0 Lymph % 26.1 % 20.0-52.0 [place]% 7.1 % 5.0-12.0 Eos% 1.9 % 0.7-7.0 Baso% 0.3 % 0.1-1.2 Laboratory test finding 12/23/2018 [facility] ([facility]) 1.7 Low 2.0- 3.0 (607)- - Hemoglobin A1c ([facility]) 5.1 % 4.1-5.7 1 1 Gold Top SST 2 [facility] Electrochemiluminescence Immunoassay (ECLIA) Values obtained with different assay methods or kits cannot be used interchangeably. Results cannot be interpreted as absolute evidence of the presence or absence of malignant disease. Procedures Date Code Description Status 05/27/2019 43711 Finger Or Heel Stick Completed 05/23/2019 19534 Finger Or Heel Stick Completed 05/12/2019 75245 Finger Or Heel Stick Completed 04/14/2019 81147 Finger Or Heel Stick Completed 03/17/2019 44399 Finger Or Heel Stick Completed 02/17/2019 82921 Finger Or Heel Stick Completed 01/20/2019 37997 Finger Or Heel Stick Completed 01/13/2019 52134 Finger Or Heel Stick Completed 12/30/2018 [id number] Mammogram Completed 12/03/2018 50800 Remove Impact Cerumen Irrigati Completed 12/24/2017 [id number] Mammogram Completed 11/24/2014 [id number] Colonoscopy Completed 08/14/2014 [id number] Bone Mineral Density Test Completed Medical Devices Description No Information Available Encounters Type Date Location Provider Dx Diagnosis Office Visit 03/23/2019 [facility] Aurelia Guzman, H92.21 Otorrhagia, right 3:30p [employer] ear Z79.01 cops (current) use of anticoagulants Office Visit 03/02/2019 9:30a [facility] [place] H92.21 Otorrhagia, right [place], ear Afnp-C Office Visit 02/22/2019 3:40p [facility] Va Zamarripa, K86.2 Cyst of pancreas Diana E78.5 Hyperlipidemia, unspecified E03.9 Hypothyroidism, unspecified H92.21 Otorrhagia, right ear M72.2 Plantar fascial fibromatosis Office Visit 12/03/2018 9:15a [facility] Aurelia Guzman, M79.671 Pain in right [employer] foot H61.21 Impacted cerumen, right ear Assessments Date Code Description Provider 05/31/2019 R19.7 Diarrhea, unspecified Mohsen Cruz M.D. 05/31/2019 Z79.01 cops (current) use of anticoagulants Mohsen Cruz M.D. 05/31/2019 I26.99 Other pulmonary embolism without acute Mohsen Cruz M.D. cor pulmonale 05/27/2019 Z79.01 intermediate (current) use of anticoagulants aV Zamarripa M.D. 05/27/2019 I26.99 Other pulmonary embolism without acute Va Zamarripa M.D. cor pulmonale 05/23/2019 Z79.01 cops (current) use of anticoagulants Va Zamarripa M.D. 05/23/2019 I26.99 Other pulmonary embolism without acute Va Zamarripa M.D. cor pulmonale 05/12/2019 Z79.01 intermediate (current) use of anticoagulants Va Zamarripa M.D. 05/12/2019 I26.99 Other pulmonary embolism without acute Va Zamarripa M.D. cor pulmonale 04/14/2019 Z79.01 cops (current) use of anticoagulants Va Zamarripa M.D. 04/14/2019 I26.99 Other pulmonary embolism without acute Va Zamarripa M.D. cor pulmonale 03/23/2019 H92.21 Otorrhagia, right ear Aurelia Megan, [employer] 03/23/2019 Z79.01 cops (current) use of anticoagulants Aurelia Megan, [employer]ER 03/17/2019 Z79.01 cops (current) use of anticoagulants Va Zamarripa M.D. 03/17/2019 I26.99 Other pulmonary embolism without acute Va Zamarripa M.D. cor pulmonale 03/02/2019 H92.21 [facility]rhagia, [facility] 02/22/2019 K86.2 Cyst of pancreas Va Zamarripa M.D. 02/22/2019 E78.5 Hyperlipidemia, unspecified Va Zamarripa M.D. 02/22/2019 E03.9 Hypothyroidism, unspecified Va Zamarripa M.D. 02/22/2019 H92.21 Otorrhagia, right ear Va Zamarripa M.D. 02/22/2019 M72.2 Plantar fascial fibromatosis Va Zamarripa M.D. 02/17/2019 Z79.01 intermediate (current) use of anticoagulants Va Zamarripa M.D. 02/17/2019 I26.99 Other pulmonary embolism without acute Va Zamarripa M.D. cor pulmonale 01/20/2019 Z79.01 cops (current) use of anticoagulants Va Zamarripa M.D. 01/20/2019 I26.99 Other pulmonary embolism without acute Va Zamarripa M.D. cor pulmonale 01/13/2019 Z79.01 intermediate (current) use of anticoagulants Va Zamarripa M.D. 01/13/2019 I26.99 Other pulmonary embolism without acute Va Zamarripa M.D. cor pulmonale 12/31/2018 K86.2 Cyst of pancreas Va Zamarripa M.D. 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 12/23/2018 Z79.01 intermediate (current) use of anticoagulants Va Zamarripa M.D. 12/23/2018 R73.01 Impaired fasting glucose Va Zamarripa M.D. 12/23/2018 Z00.00 Encntr for general adult medical exam w/o Va Zamarripa M.D. abnormal findings 12/23/2018 E78.5 Hyperlipidemia, unspecified aV Zamarripa M.D. 12/23/2018 E03.9 Hypothyroidism, unspecified Va Zamarripa M.D. 12/23/2018 I26.99 Other pulmonary embolism without acute Va Zamarripa M.D. cor pulmonale 12/06/2018 Z00.00 Encounter for general adult medical Va Zamarripa M.D. examination without abnormal findings 12/06/2018 Z79.01 intermediate (current) use of anticoagulants Va Zamarripa M.D. 12/06/2018 I26.99 Other pulmonary embolism without acute Va Zamarripa M.D. cor pulmonale 12/06/2018 E03.9 Hypothyroidism, unspecified Va Zamarripa M.D. 12/06/2018 R73.01 Impaired fasting glucose Va Zamarripa M.D. 12/06/2018 E78.5 Hyperlipidemia, unspecified Va Zamarripa M.D. 12/06/2018 Z12.31 Encounter for screening mammogram for Va Zamarripa M.D. malignant neoplasm of breast 12/06/2018 G31.84 Mild cognitive impairment, so stated Va Zamarripa M.D. 12/06/2018 R29.890 Loss of height Va Zamarripa M.D. 12/06/2018 N20.0 Calculus of kidney Va Zamarripa M.D. 12/03/2018 M79.671 Pain in right foot LILIAN Byers 12/03/2018 H61.21 Impacted cerumen, right ear Aurelia Guzman, LILIAN Plan of Treatment Future Appointment(s):06/09/2019 10:15 am - Va Zamarripa M.D. at [id number] 10:00 am - Va Zamarripa M.D. at [facility] [place]9105/31/2019 - Mohsen Cruz M.D.R19.7 Diarrhea, unspecifiedNew Labs:CBC Electronic ([facility]), Ordered: 05/31/19C Reactive Protein, Ordered: 05/31/19Comp Metabolic-ALL Lab [facility], Ordered: 05/31/19Free T4 ([facility]), Ordered: 05/31/19TSH ([facility]/ [facility]), Ordered: 05/31/19Comments:need to rule out C.diff colitis, will get lab work and stool studiesINR coming up , she is going to continue her usual dose of Coumadin at 5 mg daily return to office with Dr Zamarripa in 3 evhwjA40.01 cops (current) use of iothpvwtyrlucaL67.99 Other pulmonary embolism without acute cor pulmonale Functional Status Description No Information Available Mental Status Description No Information Available Referrals Refer to Reason for Referral Status Appt Date Peter Reeder MD right ear/bleeding jw Scheduled 04/21/2019 [address] [place] [address] [phone] Balaji SWANSON, Davina evaluate and tx-hip pain Scheduled 01/21/2019 [facility] [address] [address] [phone] [facility] Physical PHYSICAL THERAPY evaluate and Scheduled Therapy treat right sided plantar faciitis [address] [facility] [address] [place], [place] [id number] [phone] Bennett Shi evaluate and tx-plantar fascities Scheduled 12/07/[address] [place] [address] new address as of 04/17/2014 [phone]
--- OUTSIDE RECORDS SUMMARY | 2019-06-22 10:47 | XMS REPORT | Continuity of Care Document ---
:1950 External Reference #:[id number] Author Name Va Zamarripa M.D. (transmitted by agent of provider Caryl Dietrich) Address [address] [place] [address] Care Team Providers Name Role Phone Va Zamarripa M.D. - Family Medicine Care Team Information [employer] [phone] Bennett Gregory MD - Orthopaedic Care Team Information [employer] Mechanic [phone] Surgery Kia Estevez - Pulmonary Disease Care Team Information [employer] Mechanic Enrique Harris MD - Gastroenterology Care Team Information [employer] Mechanic [facility] Physical Care Team Information [employer] Mechanic Therapy - Physical Therapy Jose Alfredo Armstrong - Urology Care Team Information [employer] Mechanic [phone] Navi Blanco - Gastroenterology Care Team Information [employer] Mechanic Davina Carpio MD - Orthopaedic Care Team Information [employer] Mechanic [phone] Surgery Problems Active Problems Provider Date 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 Onset: 10/13/2018 Cyst and pseudocyst of pancreas Va Zamarripa M.D. Onset: 06/03/2019 Plantar fascial fibromatosis Va Zamarripa M.D. Onset: [...] Medications SIG Qnty Indications Ordering Date Provider Loperamide HCL 2 tabs at onset 30caps Va Zamarripa 06/03/2019 2mg of diarrhea and M.D. Capsules can repeat 1 tab after each loose stool max 8 tabs daily Cyclobenzaprine HCL take one tablet 30tabs Va Zamarripa, 12/06/2018 10mg by mouth every 8 M.D. Tablets hours as needed Clonazepam use 1/2 to 1 90tabs Va Zamarripa, 12/26/2016 2mg Tablets tablet three M.D. times a day as needed [place] Thyroid compounded 180tabs Va Zamarripa, 10/15/2016 30mg thyroid 1/2 grain M.D. Tablets Warfarin Sodium take 1 tablet by 90tabs Va Zamarripa, 5mg mouth every day M.D. Tablets Simvastatin take 1 tablet by 90tabs Va Zamarripa, 40mg Tablets mouth at bedtime M.D. History Medications Lovenox 100mg twice a day 10ml Ricki Nathaniel 05/13/2019 - 100mg/ml until inr therapeutic MD Henok 05/31/2019 Solution Immunizations Description No Information Available Vital Signs [...] Test Result H/L Range Note Laboratory test 06/21/2019 [facility] Inr (Fma) 1.7 Low 2.0-3.0 finding (607)- - Laboratory test 06/01/2019 [facility] C Reactive 1.82 mg/L Normal <8.01 1 finding Protein CBC Electronic 06/01/2019 Taiwo Maynard([facility]) WBC 5.9 4.0-10.0 Fma x10^3/UL RBC 4.66 x10^6/UL 3.93-6.00 HGB 14.4 g/dL 12.0-17.0 HCT 43 % 35-50 MCV 91.6 fL 80.0-95.0 MCH 30.9 pg 25.6-32.2 MCHC 33.7 g/dL 32.2-36.0 RDW-CV 12.8 % 11.6-14.4 PLT 218 x10^3/UL 163-400 MPV 9.2 fL Low 9.4-12.4 Eyad# 3.09 x10^3/UL 1.56-6.13 Lymph# 2.24 x10^3/UL 1.18-3.74 Bradford# 0.46 x10^3/UL 0.24-0.82 Eos # 0.1 x10^3/UL 0.0-0.5 Baso # 0.03 x10^3/UL 0.01-0.08 Eyad% 52.2 % 34.0-70.0 Lymph % 37.8 % 20.0-52.0 Bradford% 7.8 % 5.0-12.0 Eos% 1.5 % 0.7-7.0 Baso% 0.5 % 0.1-1.2 Comprehensive Metabolic 06/01/2019 Taiwo Maynard([facility]) Sodium 134 mEq/L 134-149 Prof Potassium 4.5 mEq/L 3.6-5.5 Chloride 100 mEq/L 94-112 Carbon Dioxide 26 mEq/L 21-32 Glucose 97 mg/dL 70-105 BUN 22 mg/dL 6-26 Creatinine 0.7 mg/dL 0.6-1.4 BUN/Creat Ratio 31.4 CALC 8.0-36.0 Calcium 9.6 mg/dL 8.9-10.6 Total Protein 6.9 g/dL 6.4-8.3 Albumin 4.2 g/dL 3.8-5.5 Globulin 2.7 g/dL 2.0-4.8 A/G Ratio 1.6 CALC 0.6-2.3 Alk. Phosphatase 70 U/L 30-110 Alt (SGPT) 30 U/L 7-35 Ast (Sgot) 23 U/L 5-34 Total Bilirubin 0.5 mg/dL 0.2-1.3 GFR Non- >60 ml/min/1.73m^ >=60 GFR >60 ml/min/1.73m^ >=60 Laboratory test 06/01/2019 Maravilla Aleyda(fma) Free T4 0.73 ng/dL Low 0.75-1.54 2 finding TSH 4.90 mIU/L 0.50-6.00 Laboratory test 05/31/2019 [facility] C Difficile PCR SEE RESULT 3 finding BELOW Laboratory test 05/31/2019 [facility] (Fma) 1.9 Low 2.0-3 finding (607)- - .0 Laboratory test 05/27/2019 family [facility] Inr (Fma) 1.2 Low 2.0-3 finding (607)- - .0 Laboratory test 05/23/2019 family [facility] Inr (Fma) 0.9 Low 2.0-3 finding (607)- - .0 Laboratory test 05/12/2019 family [facility] Inr (Fma) 2.3 2.0-3 finding (607)- - .0 Laboratory test 04/14/2019 family medicine Inr (Fma) 2.7 2.0-3 finding (607)- - .0 Laboratory test 03/17/2019 family medicine Inr (Fma) 2.4 2.0-3 finding (607)- - .0 Laboratory test 02/17/2019 family medicine Inr (Fma) 3.0 High 0.9-1 finding (607)- - .1 Laboratory test 01/20/2019 family [facility] Inr (Fma) 2.1 2.0-3 finding (607)- - .0 Laboratory test 01/13/2019 family medicine Inr (Fma) 1.5 Low 2.0-3 finding (607)- - .0 Laboratory test 12/31/2018 [facility] CA 19-9 11 U/mL 0-35 4, 5 finding [address] [place] [address] (607)- - Comprehensive 12/23/2018 Maravilla Aleyda(a) Sodium 140 mEq/L 134-1 Metabolic Prof 49 Potassium 4.8 mEq/L 3.6-5.5 Chloride 105 mEq/L [...] GFR >60 ml/min/1.73m^ >=60 Lipid Profile 12/23/2018 Maravilla Aleyda([facility]) Cholesterol 207 mg/dL High 120-200 Triglycerides 117 mg/dL 30-200 HDL Cholesterol 65 mg/dL 30-85 LDL (Calculated) 119 CALC 0-129 VLDL Cholesterol 23 mg/dL 0-50 HDL Risk Factor 3.2 CALC 0.0-4.4 Laboratory test finding 12/23/2018 Taiwo Aleyda(a) TSH 2.29 mIU/L 0.50-6.00 Free T4 0.76 ng/dL 0.75-1.54 CBC Electronic Fma 12/23/2018 Maravilla Aleyda(a) WBC 5.8 x10^3/UL 4.0- 10.0 RBC 4.81 x10^6/UL 3.93-6.00 HGB 14.8 g/dL 12.0-17.0 HCT 45 % 35-50 MCV 94.0 fL 80.0-95.0 MCH 30.8 pg 25.6-32.2 MCHC 32.7 g/dL 32.2-36.0 RDW-CV 12.6 % 11.6-14.4 PLT 248 x10^3/UL 163-400 MPV 9.3 fL Low 9.4-12.4 Eyad# 3.70 x10^3/UL 1.56-6.13 Lymph# 1.50 x10^3/UL 1.18-3.74 Bradford# 0.41 x10^3/UL 0.24-0.82 Eos # 0.1 x10^3/UL 0.0-0.5 Baso # 0.02 x10^3/UL 0.01-0.08 Eyad% 64.4 % 34.0-70.0 Lymph % 26.1 % 20.0-52.0 Bradford% 7.1 % 5.0-12.0 Eos% 1.9 % 0.7-7.0 Baso% 0.3 % 0.1-1.2 Laboratory test finding 12/23/2018 [facility] medicine Inr (Fma) 1.7 Low 2.0- 3.0 (607)- - Hemoglobin A1c (Fma) 5.1 % 4.1-5.7 1 [id number] 1sst 2 RESULTS VERIFIED BY REPEAT ANALYSIS 3 SEE RESULT BELOW Name: FANY GOODMAN : [address]: Va Zamarripa MD Acct: [id number] Unit: [id number] AGE: 68 Location: [facility] Re05/31/19 SEX: F Status: REG REF SPEC: [id number] SHAHID: 05/31/19-[address] [facility] [address]: Va Zamarripa MD REQ: [id number] RECD: 05/31/19 STATUS: COMP _ SOURCE: STOOL SPDESC: ORDERED: C. diff PCR/S, Stool Culture/R, Fecal Lactoferr/R, O P: Giar/Crypt/ R Procedure Result Reported Site Stool Culture Final 06/02/19- 1026 ML Result No enteric pathogens isolated Testing for Salmonella, Shigella, Aeromonas, Plesiomonas, Yersinia and Campylobacter are included in a Stool Culture. Vibrio spp not routinely tested for in a stool culture. If testing is desired, please request specifically when placing test order. Sensitivities not routinely performed on stool isolates, as antibiotics may prolong the carriage rate of bacteria. Please contact the microbiology lab if sensitivities are required. Stool Specimen Description Final 05/31/19- 2206 ML Stool Color Light Brown Stool Form Nonformed Stool Consistency Liquid with Solid pieces Shiga Toxin 1 2 Final 06/01/19- 1508 ML Organism 1 Negative Shiga Toxin 1 2 CONTINUED ON NEXT PAGE DEPARTMENT OF PATHOLOGY, [address] [place] [address] Pablo Love M.D. Director [facility] # [id number] Specimen: [id number] Collected: 05/31/19 Received: 05/31/19 (Continued) Procedure Result Reported Site Shiga Toxin 1 2 Final (continued) 06/01/19- 1508 Immunochromatographic Assay. As with all diagnostic procedures, the laboratory results obtained should be used in conjunction with other clinical information available to the physician, including confirmation by another method, as applicable. C. difficile PCR Final 06/01/19- 0020 ML Organism 1 027 Presumptive NEGATIVE Organism 2 Toxigenic C.diff NEGATIVE As with all diagnostic procedures, the laboratory results obtained should be used in conjunction with other clinical information available to the physician, including confirmation by another method, as applicable. Fecal Lactoferrin (Stool WBC) Final 05/31/19- 2222 ML Fecal Lactoferrin Positive by Immunoassay TEST LIMITATIONS: Assay detects elevated levels of lactoferrin released from fecal leukocytes as a marker of intestinal inflammation. The test may not be appropriate in immunocompromised persons. Fecal samples from breast fed infants should not be used with this assay. O P: Giardia/Cryptospor Screen Final 06/01/19- 1231 ML Organism 1 Neg Cryptosporidium/Giardia Giardia and cryptosporidium antigen testing performed by enzyme immunoassay. If patient is immunocompromised or has traveled to or is from a developing country, a full ova and parasite exam with microscopic (OPMIC) is recommended. All samples will be held 21 days in case full ova and parasite testing is requested. Contact the Microbiology Department at [phone]. CONTINUED ON NEXT PAGE DEPARTMENT OF PATHOLOGY, [address] [place] [address] Pablo Love M.D. Director [facility] # [id number] Specimen: [id number] Collected: 05/31/19 Received: 05/31/19 (Continued) Procedure Result Reported Site O P: Giardia/Cryptospor Screen Final (continued) 06/01/19- 1231 TEST LIMITATIONS: As with all diagnostic procedures, the results obtained should be used in conjunction with other clinical information available to the physician, including confirmation by another method. Negative results can occur in samples containing antigen below lower limits of detection of the assay. One negative specimen does not rule out the possibility of a parasitic infection. To improve detection it is recommended that three specimens be collected on separate days over a period of not more than seven days. The use of colonic washes, aspirates or other diluted sample types has not been established and could affect the performance of the assay. Stool samples contaminated with an oily or particulate base (eg. Barium, mineral oil etc.) could interfere with the test and are not recommended. * ML - Main Lab . END OF REPORT DEPARTMENT OF PATHOLOGY, [address] [place] [address] Pablo Love M.D. Director [facility] # [id number] 4 1 [facility] SST 5 [employer] [employer] Electrochemiluminescence Immunoassay (ECLIA) Values obtained with different assay methods or kits cannot be used interchangeably. Results cannot be interpreted as absolute evidence of the presence or absence of malignant disease. Procedures Date Code Description Status 06/21/2019 62603 Finger Or Heel Stick Completed 05/31/2019 95462 Finger Or Heel Stick Completed 05/27/2019 38922 Finger Or Heel Stick Completed 05/23/2019 33947 Finger Or Heel Stick Completed 05/12/2019 72821 Finger Or Heel Stick Completed 04/14/2019 61466 Finger Or Heel Stick Completed 03/17/2019 83527 Finger Or Heel Stick Completed 02/17/2019 24658 Finger Or Heel Stick Completed 01/20/2019 67628 Finger Or Heel Stick Completed 01/13/2019 82240 Finger Or Heel Stick Completed 12/30/2018 [id number] Mammogram Completed 12/24/2017 [id number] Mammogram Completed 11/24/2014 85811341 Colonoscopy Completed 08/14/2014 [id number] Bone Mineral Density Test Completed Medical Devices Description No Information Available Encounters Type Date Location Provider Dx Diagnosis Office Visit 06/21/2019 [facility] Va Zamarripa, R19.7 Diarrhea, 4:00p M.D. unspecified K86.2 Cyst of pancreas Z79.01 alf (current) use of anticoagulants Z86.711 Personal history of pulmonary embolism Office Visit 06/03/2019 9:00a [facility] Va Zamarripa, R19.7 Diarrhea, M.D. unspecified K86.2 Cyst of pancreas Office Visit 05/31/2019 3:00p [facility] Mohsen FCatalina Cruz, R19.7 Diarrhea, M.D. 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 E78.5 Hyperlipidemia, unspecified E03.9 Hypothyroidism, unspecified H92.21 Otorrhagia, right ear M72.2 Plantar fascial fibromatosis Assessments Date Code Description Provider 06/21/2019 R19.7 Diarrhea, unspecified Va Zamarripa M.D. 06/21/2019 Z79.01 alf (current) use of anticoagulants Va Zamarripa M.D. 06/21/2019 K86.2 Cyst of pancreas Va Zamarripa M.D. 06/21/2019 I26.99 Other pulmonary embolism without acute Va Zamarripa M.D. 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 06/21/2019 Z86.711 Personal history of pulmonary embolism Va Zamarripa M.D. 06/03/2019 R19.7 Diarrhea, unspecified Va Zamarripa M.D. 06/03/2019 K86.2 Cyst of pancreas Va Zamarripa M.D. 06/01/2019 R19.7 Diarrhea, unspecified Mohsen Cruz M.D. 06/01/2019 E78.5 Hyperlipidemia, unspecified Mohsen Cruz M.D. 06/01/2019 E03.9 Hypothyroidism, unspecified Mohsen Cruz M.D. 05/31/2019 R19.7 Diarrhea, unspecified Mohsen Cruz M.D. 05/31/2019 Z79.01 alf (current) use of anticoagulants Mohsen Cruz M.D. 05/31/2019 I26.99 Other pulmonary embolism without acute Mohsen Cruz M.D. cor pulmonale 05/27/2019 Z79.01 alf (current) use of anticoagulants Va Zamarripa M.D. 05/27/2019 I26.99 Other pulmonary embolism without acute Va Zamarripa M.D. cor pulmonale 05/23/2019 Z79.01 alf (current) use of anticoagulants Va Zamarripa M.D. 05/23/2019 I26.99 Other pulmonary embolism without acute Va Zamarripa M.D. 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 05/12/2019 I26.99 Other pulmonary embolism without acute Va Zamarripa M.D. 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 04/14/2019 I26.99 Other pulmonary embolism without acute Va Zamarripa M.D. 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 03/17/2019 I26.99 Other pulmonary embolism without acute Va Zamarripa M.D. cor pulmonale 03/02/2019 H92.21 Otorrhagia, right ear [place] Fletcher, Afnp-C 02/22/2019 K86.2 Cyst of pancreas Va Zamarripa M.D. 02/22/2019 E78.5 Hyperlipidemia, unspecified Va Zamarripa M.D. 02/22/2019 E03.9 Hypothyroidism, unspecified Va Zamarripa M.D. 02/22/2019 H92.21 Otorrhagia, right ear Va Zamarripa M.D. 02/22/2019 M72.2 Plantar fascial fibromatosis Va Zamarripa M.D. 02/17/2019 Z79.01 alf (current) use of anticoagulants Va Zamarripa M.D. 02/17/2019 I26.99 Other pulmonary embolism without acute Va Zamarripa M.D. cor pulmonale 01/20/2019 Z79.01 alf (current) use of anticoagulants Va Zamarripa M.D. 01/20/2019 I26.99 Other pulmonary embolism without acute Va Zamarripa M.D. 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 01/13/2019 I26.99 Other pulmonary embolism without acute Va Zamarripa M.D. cor pulmonale 12/31/2018 K86.2 Cyst of pancreas Va Zamarripa M.D. 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 12/23/2018 R73.01 Impaired fasting glucose Va Zamarripa M.D. 12/23/2018 Z00.00 Encntr for general adult medical exam w/o Va Zamarripa M.D. abnormal findings 12/23/2018 E78.5 Hyperlipidemia, unspecified Va Zamarripa M.D. 12/23/2018 E03.9 Hypothyroidism, unspecified Va Zamarripa M.D. 12/23/2018 I26.99 Other pulmonary embolism without acute Va Zamarripa M.D. cor pulmonale Plan of Treatment Future Appointment(s):07/05/2019 10:30 am - Va Z[facility]ripa M.D. at [facility] Ojmrpd3912/08/2019 10:00 am - Va Zamarripa M.D. at [facility] Xtwyir6106/21/2019 - Va Zamarripa M.D.R19.7 Diarrhea, unspecifiedComments:refer GI , continue metamucil ; Reviewed warning signs and symptoms. Reasons to return to office or proceed to emergency room discussed including but not limited to no improvement or worsening of symptoms. Advised to call the office for any questions or concerns. Patient verbalized understanding.K86.2 Cyst of iujkuchoN22.01 petroleum terminal plant operator (current) use of anticoagulantsNew Labs:Inr (Fma), Ordered: Z86.711 Personal history of pulmonary embolismAllComments:Medication Management Patient Understands medications she's taking? Yes No Are there Barriers to Adherence? Yes No Has the patient been asked about herbal supplements and therapies, and OTC meds? Yes No Functional Status Description No Information Available Mental Status Description No Information Available Referrals Refer to Reason for Referral Status Appt Date Enrique Harris MD URGENT REFERRAL PLEASE SCHEDULE HERMINIA ongoing Sent diarrhea since EUS/panc bx jw [address] [place], [place] [id number] [phone] Peter Reeder MD right ear/bleeding jw [facility] [place] [id number] [phone] Balaji SWANSON, Davina evaluate and tx-hip pain Scheduled 01/21/2019 [facility] [address] [address] [phone]
--- OUTSIDE RECORDS SUMMARY | 2019-06-22 10:47 | XMS REPORT | Continuity of Care Document ---
:1950 External Reference #:[id number] Author Name Va Zamarripa M.D. Address [address] [place] [address] Care Team Providers Name Role Phone Va Zamarripa M.D. - Family Medicine Care Team Information Floor Specialist Bennett Gregory MD - Orthopaedic Care Team Information Floor Specialist Surgery Kia Estevez - Pulmonary Disease Care Team Information Floor Specialist Enrique Harris MD - Gastroenterology Care Team Information Floor Specialist [facility] [place] Physical Care Team Information Floor Specialist Therapy - Physical Therapy Jose Alfredo Armstrong - Urology Care Team Information Floor Specialist [phone] Navi Blanco - Gastroenterology Care Team Information Floor Specialist Davina Carpio MD - Orthopaedic Care Team Information Floor Specialist Surgery Problems Active Problems Provider Date Mixed [...] three M.D. times a day as needed Wilson Thyroid compounded 180tabs Va Zamarripa, 10/15/2016 30mg thyroid 1/2 grain M.D. Tablets Warfarin Sodium take 1 tablet by 90tabs Va Zamarripa, 5mg mouth every day M.D. Tablets Simvastatin take 1 tablet by 90tabs Va Zamarripa, 40mg Tablets mouth at bedtime M.D. History Medications Lovenox 100mg twice a day 10ml Ricki TCatalina 05/13/2019 - 100mg/ml until inr MD Henok [...] Test Result H/L Range Note Laboratory test 06/01/2019 [facility] C Reactive 1.82 mg/L Normal <8.01 1 finding Protein CBC Electronic 06/01/2019 Taiwo Maynard(a) WBC 5.9 4.0-10.0 Fma x10^3/UL RBC 4.66 x10^6/UL 3.93-6.00 HGB 14.4 g/dL 12.0-17.0 HCT 43 % 35-50 MCV 91.6 fL 80.0-95.0 MCH 30.9 pg 25.6-32.2 MCHC 33.7 g/dL 32.2-36.0 RDW-CV 12.8 % 11.6-14.4 PLT 218 x10^3/UL 163-400 MPV 9.2 fL Low 9.4-12.4 Eyad# 3.09 x10^3/UL 1.56-6.13 Lymph# 2.24 x10^3/UL 1.18-3.74 [place]dale# 0.46 x10^3/UL 0.24-0.82 Eos # 0.1 x10^3/UL 0.0-0.5 Baso # 0.03 x10^3/UL 0.01-0.08 Eyad% 52.2 % 34.0-70.0 Lymph % 37.8 % 20.0-52.0 [place]% 7.8 % 5.0-12.0 Eos% 1.5 % 0.7-7.0 Baso% 0.5 % 0.1-1.2 Comprehensive Metabolic 06/01/2019 Taiwo Maynard(a) Sodium 134 mEq/L 134-149 Prof Potassium 4.5 [...] 11 U/mL 0-35 4, 5 finding [address] [place] [address] (607)- - Comprehensive 12/23/2018 Maravilla Aleyda(a) Sodium [...] >60 ml/min/1.73m^ >=60 Lipid Profile 12/23/2018 Maravilla Aleyda(a) Cholesterol 207 mg/dL High 120-200 Triglycerides 117 [...] 3.70 x10^3/UL 1.56-6.13 Lymph# 1.50 x10^3/UL 1.18-3.74 [place]# 0.41 x10^3/UL 0.24-0.82 Eos # 0.1 x10^3/UL 0.0-0.5 Baso # 0.02 x10^3/UL 0.01-0.08 Eyad% 64.4 % 34.0-70.0 Lymph % 26.1 % 20.0-52.0 [place]% 7.1 % 5.0-12.0 Eos% 1.9 % 0.7-7.0 Baso% 0.3 % 0.1-1.2 Laboratory test finding 12/23/2018 [facility] medicine Inr (Fma) 1.7 Low 2.0- 3.0 (607)- - Hemoglobin A1c (Fma) 5.1 % 4.1-5.7 1 [id number] 1sst 2 RESULTS VERIFIED BY REPEAT ANALYSIS 3 SEE RESULT BELOW Name: FANY GOODMAN : [address]: Va Zamarripa MD Acct: [id number] Unit: [id number] AGE: 68 Location: [facility] Re05/31/19 SEX: F Status: REG REF SPEC: [id number] SHAHID: 05/31/19-[address] [facility] [address]: Va Zamarripa MD REQ: [id number] RECD: 05/31/19 STATUS: COMP _ SOURCE: STOOL [...] CONTINUED ON NEXT PAGE DEPARTMENT OF PATHOLOGY, [address] [place] [address] Pablo Love M.D. Director [facility] # [id number] Specimen: [id number] Collected: 05/31/19 Received: 05/31/19 (Continued) Procedure Result [...] is requested. Contact the Microbiology Department at [phone]. CONTINUED ON NEXT PAGE DEPARTMENT OF PATHOLOGY, [address] [place] [address] Pablo Love M.D. Director [facility] # [id number] Specimen: [id number] Collected: 05/31/19 Received: 05/31/19 (Continued) Procedure Result [...] . END OF REPORT DEPARTMENT OF PATHOLOGY, [address] [place] [address] Pablo Love M.D. Director [facility] # [id number] 4 1 Gold Top SST 5 [facility] Electrochemiluminescence Immunoassay (ECLIA) Values obtained with different assay methods or kits cannot be used interchangeably. Results cannot be interpreted as absolute evidence of the presence or absence of malignant disease. Procedures Date Code Description Status 05/31/2019 13715 Finger Or Heel Stick Completed 05/27/2019 62559 Finger Or Heel Stick Completed 05/23/2019 61096 Finger Or Heel Stick Completed 05/12/2019 89061 Finger Or Heel Stick Completed 04/14/2019 42083 Finger Or Heel Stick Completed 03/17/2019 24015 Finger Or Heel Stick Completed 02/17/2019 81025 Finger Or Heel Stick Completed 01/20/2019 84904 Finger Or Heel Stick Completed 01/13/2019 66767 Finger Or Heel Stick Completed 12/30/2018 [id number] Mammogram Completed 12/24/2017 [id number] Mammogram Completed 11/24/2014 [id number] Colonoscopy Completed 08/14/2014 [id number] Bone Mineral Density Test Completed Medical Devices Description No Information Available Encounters Type Date Location Provider Dx Diagnosis Office Visit 05/31/2019 Main Office Mohsen Cruz, R19.7 Diarrhea, unspecified 3:00p M.D. Z79.01 intermediate designer (current) use of anticoagulants I26.99 Other pulmonary embolism without acute cor pulmonale Office Visit 03/23/2019 3:30p [facility] Aurelia H92.21 Otorrhagia, right Megan, SENIOR SOFTWARE ENGINEERING MANAGER ear Z79.01 intermediate designer (current) use of anticoagulants Office Visit 03/02/2019 9:30a Main [facility] [place] H92.21 Otorrhagia, right [place], ear Afnp-C Office Visit 02/22/2019 3:40p [facility] Va Zamarripa K86.2 Cyst of pancreas M.D. E78.5 Hyperlipidemia, unspecified E03.9 Hypothyroidism, unspecified H92.21 Otorrhagia, right ear M72.2 Plantar fascial fibromatosis Assessments Date Code Description Provider 06/03/2019 R19.7 Diarrhea, unspecified Va Zamarripa M.D. 06/03/2019 K86.2 Cyst of pancreas Va Zamarripa M.D. 06/01/2019 R19.7 Diarrhea, unspecified Mohsen Curz M.D. 06/01/2019 E78.5 Hyperlipidemia, unspecified Mohsen Cruz M.D. 06/01/2019 E03.9 Hypothyroidism, unspecified Mohsen Cruz M.D. 05/31/2019 R19.7 Diarrhea, unspecified Mohsen Cruz M.D. 05/31/2019 Z79.01 correction (current) use of anticoagulants Mohsen Cruz M.D. 05/31/2019 I26.99 Other pulmonary embolism without acute Mohsen Cruz M.D. cor pulmonale 05/27/2019 Z79.01 intermediate designer (current) use of anticoagulants Va Zamarripa M.D. 05/27/2019 I26.99 Other pulmonary embolism without acute Va Zamarripa M.D. cor pulmonale 05/23/2019 Z79.01 intermediate designer (current) use of anticoagulants Va Zamarripa M.D. 05/23/2019 I26.99 Other pulmonary embolism without acute Va Zamarripa M.D. cor pulmonale 05/12/2019 Z79.01 correction (current) use of anticoagulants Va Zamarripa M.D. 05/12/2019 I26.99 Other pulmonary embolism without acute Va Zamarripa M.D. cor pulmonale 04/14/2019 Z79.01 intermediate designer (current) use of anticoagulants Va Zamarripa M.D. 04/14/2019 I26.99 Other pulmonary embolism without acute Va Zamarripa M.D. cor pulmonale 03/23/2019 H92.21 Otorrhagia, right ear Aurelia Guzman, SENIOR SOFTWARE ENGINEERING MANAGER 03/23/2019 Z79.01 intermediate designer (current) use of anticoagulants Aurelia Guzman, SENIOR SOFTWARE ENGINEERING MANAGER 03/17/2019 Z79.01 correction (current) use of anticoagulants Va Zamarripa M.D. 03/17/2019 I26.99 Other pulmonary embolism without acute Va Zamarripa M.D. cor pulmonale 03/02/2019 H92.21 Otorrhagia, right ear Stephanie Tuttle-Joanna 02/22/2019 K86.2 Cyst of pancreas Va Zamarripa M.D. 02/22/2019 E78.5 Hyperlipidemia, unspecified Va Zamarripa M.D. 02/22/2019 E03.9 Hypothyroidism, unspecified Va Zamarripa M.D. 02/22/2019 H92.21 Otorrhagia, right ear Va Zamarripa M.D. 02/22/2019 M72.2 Plantar fascial fibromatosis Va Zamarrpia M.D. 02/17/2019 Z79.01 intermediate designer (current) use of anticoagulants Va Zamarripa M.D. 02/17/2019 I26.99 Other pulmonary embolism without acute Va Zamarripa M.D. cor pulmonale 01/20/2019 Z79.01 correction (current) use of anticoagulants Va Zamarripa M.D. 01/20/2019 I26.99 Other pulmonary embolism without acute Va Zamarripa M.D. cor pulmonale 01/13/2019 Z79.01 correction (current) use of anticoagulants Va Zamarripa M.D. 01/13/2019 I26.99 Other pulmonary embolism without acute Va Zamarripa M.D. cor pulmonale 12/31/2018 K86.2 Cyst of pancreas Va Zamarripa M.D. 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 12/23/2018 Z79.01 intermediate designer (current) use of anticoagulants Va Zamarripa M.D. [...] M.D. examination without abnormal findings 12/06/2018 Z79.01 correction (current) use of anticoagulants Va Zamarripa M.D. 12/06/2018 I26.99 Other pulmonary embolism without acute Va Zamarripa M.D. cor pulmonale 12/06/2018 E03.9 Hypothyroidism, baudilio Zamarripa M.D. 12/06/2018 R73.01 Impaired fasting glucose Va Zamarripa M.D. 12/06/2018 E78.5 Hyperlipidemia, unspecified Va Zamarripa M.D. 12/06/2018 Z12.31 Encounter for screening mammogram for Va Zamarripa M.D. malignant neoplasm of breast 12/06/2018 G31.84 Mild cognitive impairment, so stated Va Zamarripa M.D. 12/06/2018 R29.890 Loss of height Va Zamarripa M.D. 12/06/2018 N20.0 Calculus of kidney Va Zamarripa M.D. Plan of Treatment Future Appointment(s):06/21/2019 10:00 am - Va Zamarripa M.D. at [facility] Bgsjll1406/09/2019 10:15 am - Va Zamarripa M.D. at Main Shlthj7412/08/2019 10:00 am - Va Zamarripa M.D. at Main Hovrmm2706/03/2019 - Va Zamarripa M.D.R19.7 Diarrhea, unspecifiedComments:BRAT diet discussed and eat bland foods, keep hydrated, avoid dairy, greasy, spicy foods and caffeine, alcohol and sugary drinks; minimize fiber possible antibiotic associated , negative stool tests, ok for immodium to take as xnkxnzB32.2 Cyst of pancreasComments:benignAllNew Medication:Loperamide HCL 2 mg - 2 tabs at onset of diarrhea and can repeat 1 tab after each loose stool max 8 tabs dailyComments:Medication Management Patient Understands medications she's taking? Yes No Are there Barriers to Adherence? Yes No Has the patient been asked about herbal supplements and therapies, and OTC meds? Yes No Functional Status Description No Information Available Mental Status Description No Information Available Referrals Refer to Reason for Referral Status Appt Date Peter Reeder MD right ear/bleeding jw Scheduled 04/21/[address] [place] [address] [phone] Balaji SWANSON, Davina evaluate and tx-hip pain Scheduled 01/21/2019 [facility] [address] [address] [phone] [facility] [place] [facility]YSICAL THERAPY evaluate and Scheduled Therapy treat right sided plantar faciitis [address] [place], [place] [address] [phone] Bennett Shi evaluate and tx-plantar fascities Scheduled 12/07/[address] [place] [address] new address as of 04/17/2014 [phone]
[2019-06-22] MEDS ORDERED: Ondansetron INJ* 2 MG/ML VIAL IV ONE (10:58)
[2019-06-22] MEDS ORDERED: Morphine 4 MG/ML VIAL (1 ml) 4 MG/ML VIAL IV ONE (10:58)
[2019-06-22] MEDS ORDERED: NS 0.9% 1000 ML** 1,000 ML IV ONE ×2 (10:58→11:59)
[2019-06-22] MEDS ORDERED: Tamsulosin CAP* 0.4 MG PO ONE (10:59)
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
[2019-06-22 11:21] LABS: ABS Eosinophils 0.2 10^3/ul (0-0.6); ABS Lymphocytes 1.6 10^3/ul (1.0-4.8); ABS Monocytes 0.4 10^3/ul (0-0.8); ABS Neutrophils 3.4 10^3/ul (1.5-7.7); Eosinophil % 3.3 %; Hematocrit 42 % (35-47); Hemoglobin 14.6 g/dL (12.0-16.0); Lymphocyte % 28.5 %; Mean Corpuscular HGB Conc 35 g/dL (31-36); Mean Corpuscular Hemoglobin 32 pg (27-31); Mean Corpuscular Volume 92 fL (80-97); Mean Platelet Volume 8.2 fL (7.4-10.4); Nucleated Red Blood Cells % 0.1; Platelet Count 190 10^3/uL (150-450); Red Blood Count 4.55 10^6 /uL (3.70-4.87); Red Cell Distribution Width 14 % (10-15); White Blood Count 5.6 10^3/uL (3.5-10.8)
[2019-06-22 11:21] LABS: Urine Appearance Cloudy; Urine Bilirubin Negative (Negative); Urine Blood 2+ (Negative); Urine Color Yellow; Urine Glucose Negative (Negative); Urine Ketones Negative (Negative); Urine Nitrite Negative (Negative); Urine Protein Negative (Negative); Urine Specific Gravity 1.016 (1.010-1.030); Urine Urobilinogen Negative (Negative)
[2019-06-22 11:30] LABS: Urine Bacteria Absent (Absent); Urine Red Blood Cell 3+(>10/hpf) (Absent); Urine Squamous Epithelial Cell Present (Absent); Urine White Blood Cell 3+(>20/hpf) (Absent)
[2019-06-22 11:32] LABS: Calcium 9.7 mg/dL (8.6-10.3)
[2019-06-22 11:37] LABS: Potassium 4.4 mmol/L (3.5-5.0)
[2019-06-22 11:38] LABS: EGFR African American 66.5 (>60)
[2019-06-22 11:43] LABS: INR 1.78 (0.82-1.09)
[2019-06-22] MEDS ORDERED: cefTRIAXone(*) 2 GM in NS 0.9% 100 ML* 100 ML IVPB ONE (12:27)
[2019-06-22] MEDS ORDERED: Iohexol 180 (CONTRAST) 10 ML SDV IV ONE (12:57)
[2019-06-22] MEDS ORDERED: Morphine 4 MG/ML VIAL (1 ml) 4 MG/ML VIAL ONE (13:36)
[2019-06-22] MEDS ORDERED: Famotidine IV* 10 MG/ML 2 ML (20 mg) ONE (13:37)
--- NOTE | 2019-06-22 14:06 | HP ---
CC: Dr. Va Zamarripa DATE OF PLANNED ADMISSION AND SURGERY: 06/22/2019. HISTORY OF PRESENT ILLNESS: Ms. Goodman is a 68-year-old white female who is admitted with acute left renal colic, 8 mm calculus in the distal left ureter, for cystoscopy, left ureteroscopy, laser lithotripsy, and left ureteral stent insertion. Ms. Goodman is a known stone former with bilateral renal calculi. In November 2018, she required endoscopic procedures for treatment of left renal and ureteral calculi. She was doing well until this morning when she developed symptoms of left renal colic, with severe pain associated with nausea and vomiting. She did not have any fever or chills. She was evaluated in my office and had a renal ultrasound which showed moderate left hydronephrosis and an non-obstructing calculus in each kidney. Her vital signs in the office were normal, and her urine analysis showed +1 blood, was negative otherwise. Because of the severity of the pain, the patient was sent to the emergency room where she was started on IV fluids and given pain medications. She then had a noncontrast CT of the abdomen and pelvis which showed a 7 to 8 mm calculus in the distal third of the left ureter associated with moderate left hydronephrosis. Bilateral non-obstructing renal calculi were noted. The CT also showed stable complex cystic mass of the head of the pancreas. Because of the above history, the severity of the pain, and the size of the stone, the patient will be taken to the operating room on an urgent basis for endoscopic stone extraction. PAST MEDICAL HISTORY AND SYSTEM REVIEW: The patient has a history of pulmonary embolism and has been maintained on Warfarin at 5 mg daily. She has a history of anxiety and is maintained on Klonopin 1 to 2 mg three times per day as needed. She has hypothyroidism on thyroid replacement. She has hyperlipidemia on Simvastatin 40 mg daily. She has chronic back pain and is on Flexeril 10 mg q.8 hours as needed. She is on vitamins and supplements. She has history of irritable bowel syndrome, on Imodium as needed for loose bowel movements. She denies any cardiac disease. The patient is known to have a complex cyst of the head of the pancreas. This has minimally changed over the last several years. According to the patient, she was recently re-evaluated at the [facility] and had a transesophageal ultrasound and biopsies of the pancreatic cyst, and its benign nature was confirmed. MENTAL HISTORY: The patient has a history of anxiety and depression. Allergic to Quinolones FAMILY HISTORY: Negative for renal disease or calculi. PERSONAL HISTORY: She is not a smoker. She drinks alcohol rarely. She does not do any recreational drugs. PHYSICAL EXAMINATION GENERAL: She is a pleasant, white female who is in significant pain. VITAL SIGNS: Blood pressure 135/80, pulse 70, temperature 97.8. LUNGS: Clear. HEART: Regular and rhythmic. No murmurs. ABDOMEN: She is moderately obese. She has left CVA tenderness. The rest of the abdominal exam is normal. IMPRESSION: 1. Bilateral non-obstructing renal calculi. 2. Left renal colic secondary to an 8 mm calculus in the distal left ureter. 3. History of complex cyst of the head of the pancreas which has been stable and was recently worked up in [place] and diagnosed as being benign. PLAN: Cystoscopy, left ureteroscopy, laser lithotripsy and left ureteral stent insertion. If the calculus is difficult to reach because of edema, then the patient will have a stent placement, then she will need ureteroscopy and laser lithotripsy at a later date. I discussed the above plans with the patient. All her questions were answered. [id number]/[facility] #: [id number] STAN
[2019-06-22] MEDS ORDERED: Midazolam* 1 MG/ML 5 ML VIAL (5 MG) ONE (15:09)
[2019-06-22] MEDS ORDERED: Ondansetron INJ* 2 MG/ML VIAL ONE (15:09)
[2019-06-22] MEDS ORDERED: fentaNYL* 50 MCG/ML 2 ML VIAL (100 MCG VIAL) ONE (15:09)
[2019-06-22] MEDS ORDERED: Lidocaine 2% PF * 5 ML VIAL ONE (15:09)
[2019-06-22] MEDS ORDERED: Dexamethasone IV* 4 MG/ML 1 ML (4 MG) ONE (15:09)
[2019-06-22] MEDS ORDERED: Propofol* 10 MG/ML 20 ML BTL ONE (15:09)
[2019-06-22] MEDS ORDERED: Cisatracurium* 2 MG/ML MDV 5 ML ONE (15:09)
[2019-06-22] MEDS ORDERED: Glycopyrrolate IV* 0.2 MG/ML 1 ML VIAL ONE (15:42)
[2019-06-22] MEDS ORDERED: Neostigmine Methylsulfate* 1 MG/ML 10 ML VIAL (1 mg/ml) ONE (15:42)
[2019-06-22] MEDS ORDERED: EPHEDrine (Pressors)* 50 MG/ML VIAL ONE (15:42)
[2019-06-22] MEDS ORDERED: fentaNYL* 50 MCG/ML 2 ML VIAL (100 MCG VIAL) IV PRN (16:56)
[2019-06-22] MEDS ORDERED: Ondansetron INJ* 2 MG/ML VIAL IV PRN (16:56)
[2019-06-22] MEDS ORDERED: Naloxone* 0.4 MG/ML 1 ML VIAL IV PRN (16:56)
--- NOTE | 2019-06-22 17:05 | OP ---
CC: Dr. Va Zamarripa* OPERATIVE REPORT: DATE OF OPERATION: 06/22/19 - [facility] DATE OF : 48 SURGEON: Jose Alfredo Armstrong MD ANESTHESIOLOGIST: Dr. Ar Hughes. ANESTHESIA: General. PRE-OP DIAGNOSES: 1. Distal left ureteral calculus (8 mm). 2. Left renal colic due to above. POST-OP DIAGNOSES: 1. Distal left ureteral calculus (8 mm). 2. Left renal colic due to above. OPERATIVE PROCEDURE: 1. Cystoscopy. 2. Left ureteroscopy, laser lithotripsy of distal left ureteral calculus. 3. Left retrograde pyelography and insertion of left ureteral stent (6-Bahraini). INDICATION FOR PROCEDURE: Mrs. Goodman is a 68-year-old white male who is a known stone former and who presented to the office today with several hours' history of left renal colic. Non-contrast CT showed an 8 mm calculus in the distal third of the left ureter associated with left hydroureteronephrosis. Because of the above history and findings, the patient is taken on urgent basis to the operating room for the above procedure. PATHOLOGY: At cystoscopy, the bladder mucosa looked normal. There were no suspicious bladder lesions seen. Upon left ureteroscopy, there was an 8 mm calculus that was impacted about 3 to 4 cm above the level of the ureteral orifice. The calculus had the gross appearance of calcium oxylate stone. There was expected edema and hyperemia of the adjacent ureteral mucosa. Left retrograde pyelography showed moderate left hydroureteronephrosis. DESCRIPTION OF PROCEDURE: After successful general anesthesia, the patient was placed in the lithotomy position and was prepped and draped for a cystoscopy. Cystoscopy was performed. The bladder was inspected and the above findings were noted. A flexible-tip hybrid guidewire was introduced into the left orifice and positioned under fluoroscopy guidance into the left renal pelvis. The cystoscope was removed and the size 6.5-Bahraini semi-rigid tapered ureteroscope was introduced inside the bladder. A flexible tip basket was introduced through the port of the ureteroscope and its flexible tip was then introduced inside the left ureteral orifice alongside the guidewire. That allowed the atraumatic introduction of the ureteroscope inside the ureter. The calculus was identified. The basket was then deployed proximal to the stone to prevent its proximal migration. The stone was partially engaged to stabilize it. A size 550 micron laser fiber was then introduced into the other port of the ureteroscope. The calculus was then broken into multiple fragments using the laser energy. Care was taken not to damage the ureteral wall. The stone fragments were then extracted using the basket. Final inspection showed intact ureteral wall and no significant residual stone fragments. The ureteroscope was then removed keeping the guidewire in place. The cystoscope was introduced over the guidewire. Retrograde pyelography was then performed starting at the distal ureter and demonstrating the area where the stone was impacted and treated. There was no evidence of extravasation. A size 6-Bahraini stent was then placed with the proximal end coiling in the renal pelvis and the distal end coiling inside the bladder. There was good drainage of contrast from the kidney and no extravasation. The stone fragments were sent for stone analysis. The patient tolerated the procedure well and left the operating room in good condition. The plan is to see the patient in office in 7 to 10 days and the stent will be removed under local anesthesia. [id number] #: [id number] STAN
[2019-06-22 17:40] VITALS: BP 121/79
== END 2019-06-22 17:30 | disposition home or self-care (01) ==
LOC: ED 10:33 → OR 14:58
PROVIDERS: ATTEND Urology
DX: N13.2 Hydronephrosis with renal and ureteral calculous obstruction (principal); Z87.442 Personal history of urinary calculi; R31.9 Hematuria, unspecified; E03.9 Hypothyroidism, unspecified; Z86.711 Personal history of pulmonary embolism; Z79.01 Long term (current) use of anticoagulants; E78.5 Hyperlipidemia, unspecified; F41.8 Other specified anxiety disorders; K58.9 Irritable bowel syndrome, unspecified
CPT/HCPCS: 36415; 74176; 74420; 80048; 81003; 81015; 82365; 85025; 85610; 87086; 88300; 99284; C1876; J0696; J1100; J2250; J2270; J2405; J2704; J2710; J3010

== ENCOUNTER 2020-01-20 14:07 | Observation (INO) ==
[2020-01-20] MEDS ORDERED: NS 0.9% 1000 ml BAG 1,000 ML IV ONE (17:04)
[2020-01-20 17:53] LABS: ABS Monocytes 0.3 10^3/ul (0-0.8); Eosinophil % 0.1 %; Hematocrit 46 % (35-47); Hemoglobin 15.4 g/dL (12.0-16.0); Lymphocyte % 8.7 %; Mean Corpuscular HGB Conc 34 g/dL (31-36); Mean Corpuscular Hemoglobin 31 pg (27-31); Mean Corpuscular Volume 93 fL (80-97); Mean Platelet Volume 8.2 fL (7.4-10.4); Platelet Count 201 10^3/uL (150-450); Red Blood Count 4.92 10^6 /uL (3.70-4.87); Red Cell Distribution Width 13 % (10-15); White Blood Count 11.3 10^3/uL (3.5-10.8)
[2020-01-20 17:55] LABS: Urine Appearance Cloudy; Urine Bilirubin Negative (Negative); Urine Blood Negative (Negative); Urine Color Yellow; Urine Glucose Negative (Negative); Urine Ketones 1+ (Negative); Urine Nitrite Negative (Negative); Urine Protein Negative (Negative); Urine Specific Gravity 1.021 (1.010-1.030); Urine Urobilinogen Negative (Negative)
[2020-01-20 17:57] LABS: Urine Bacteria Absent (Absent); Urine Red Blood Cell 3+(>10/hpf) (Absent); Urine Squamous Epithelial Cell Present (Absent); Urine White Blood Cell 3+(>20/hpf) (Absent)
[2020-01-20 18:02] LABS: Activated Partial Thrombo Time 48.6 seconds (26.0-38.0); INR 2.81 (0.82-1.09)
[2020-01-20 18:03] LABS: CO2 Carbon Dioxide 20 mmol/L (22-32); Chloride 108 mmol/L (101-111); Magnesium 1.9 mg/dL (1.9-2.7); Sodium 136 mmol/L (135-145)
[2020-01-20 18:09] LABS: ALT 22 U/L (7-52); Albumin/Globulin Ratio 1.3 (1-3); Alkaline Phosphatase 60 U/L (34-104); Anion Gap 8 mmol/L (2-11); BUN/Creatinine Ratio 22.4 (8-20); Blood Urea Nitrogen 22 mg/dL (6-24); C Reactive Protein 3.11 mg/L (<8.01); Creatine Kinase 56 U/L (10-223); EGFR African American 67.9 (>60); EGFR Non-African American 56.1 (>60); Glucose 107 mg/dL (70-100); Lipase < 10 U/L (11.0-82.0); Potassium 4.2 mmol/L (3.5-5.0)
[2020-01-20 18:10] LABS: AST 25 U/L (13-39); Ammonia 46 mcmol/L (16-53)
[2020-01-20 18:11] LABS: BNP 60 pg/mL (<=100)
[2020-01-20] MEDS ORDERED: cefTRIAXone 1 gm/50 mL NS BAG 1 GM/50 ML BAG IV ONE ×2 (18:17→21:02)
[2020-01-20] MEDS ORDERED: Ondansetron 4 mg VIAL 2 MG/ML 2 ml VIAL IV ONE (19:33)
[2020-01-20] MEDS ORDERED: Prochlorperazine 5 mg/ml 2 ml VIAL (10 mg) IV PRN (20:32)
[2020-01-20] MEDS ORDERED: Senna TAB 8.6 mg TAB PO PRN (20:32)
[2020-01-20] MEDS ORDERED: Polyethylene Glycol 3350 17 GM PACKET PO PRN (20:32)
[2020-01-20] MEDS ORDERED: Ondansetron 4 mg VIAL 2 MG/ML 2 ml VIAL IV PRN (20:32)
[2020-01-20] MEDS ORDERED: Morphine 2 MG/ML SYRINGE IV PRN (20:50)
[2020-01-20] MEDS ORDERED: oxyCODONE/Acetamin 5/325 mg TAB PO PRN (20:50)
[2020-01-20] MEDS ORDERED: Iodixanol (CONTRAST) 320 MG/ML 100 ML SDV IV ONE (20:56)
[2020-01-21] MEDS: NS 0.9% 1000 ml BAG 1,000 ML IV SCH ×2 (01:37→11:38)
[2020-01-21 04:49] LABS: ABS Lymphocytes 1.3 10^3/ul (1.0-4.8); ABS Monocytes 0.7 10^3/ul (0-0.8); ABS Neutrophils 8.6 10^3/ul (1.5-7.7); Hematocrit 39 % (35-47); Hemoglobin 13.4 g/dL (12.0-16.0); Lymphocyte % 12.2 %; Mean Corpuscular HGB Conc 34 g/dL (31-36); Mean Corpuscular Hemoglobin 31 pg (27-31); Mean Corpuscular Volume 91 fL (80-97); Mean Platelet Volume 8.2 fL (7.4-10.4); Platelet Count 210 10^3/uL (150-450); Red Blood Count 4.32 10^6 /uL (3.70-4.87); Red Cell Distribution Width 14 % (10-15); White Blood Count 10.6 10^3/uL (3.5-10.8)
[2020-01-21 05:05] LABS: BUN/Creatinine Ratio 18.6 (8-20); EGFR African American 54.8 (>60); EGFR Non-African American 45.3 (>60); Potassium 4.1 mmol/L (3.5-5.0)
[2020-01-21] MEDS ORDERED: Iohexol 180 (CONTRAST) 10 ML SDV IV ONE (08:15)
[2020-01-21] MEDS ORDERED: fentaNYL 100 mcg/2 ml 50 MCG/ML VIAL ONE (08:20)
[2020-01-21] MEDS ORDERED: Midazolam 2 mg/2 ml VIAL 1 mg/ml 2 ml VIAL (2 mg) ONE (08:20)
[2020-01-21] MEDS ORDERED: Rocuronium 50 mg VIAL 10 mg/ml 5 ml VIAL (50 mg) ONE (08:20)
[2020-01-21] MEDS ORDERED: Propofol 10 MG/ML 20 ML BTL ONE (08:21)
[2020-01-21] MEDS ORDERED: Dexamethasone IV 4 MG/ML VIAL 1 ml VIAL ONE (08:57)
[2020-01-21] MEDS ORDERED: Ondansetron 4 mg VIAL 2 MG/ML 2 ml VIAL ONE (08:57)
[2020-01-21] MEDS ORDERED: Phenylephrine 40 mcg/mL 10mL (400mcg) SYRINGE ONE (08:59)
[2020-01-21] MEDS ORDERED: Ondansetron 4 mg VIAL 2 MG/ML 2 ml VIAL IV PRN (08:59)
[2020-01-21] MEDS ORDERED: HYDROmorphone 1 MG/1 ML SYRINGE IV PRN (08:59)
[2020-01-21] MEDS ORDERED: Naloxone 0.4 mg VIAL 0.4 mg/ml 1 ml VIAL IV PRN (08:59)
[2020-01-21] MEDS ORDERED: fentaNYL 100 mcg/2 ml 50 MCG/ML VIAL IV PRN (08:59)
[2020-01-21] MEDS ORDERED: Vitamin THERAPEUTIC TAB PO SCH (09:00)
[2020-01-21] MEDS ORDERED: Cholecalciferol (VIT D3) 1,000 unit TAB PO SCH (09:00)
[2020-01-21] MEDS ORDERED: CMCS: OMEGA-3 FATTY ACID 1000 mg(NF) PO SCH (09:00)
[2020-01-21] MEDS ORDERED: EPHEDrine (Pressors) 50 MG/ML VIAL ONE (09:18)
[2020-01-21] MEDS ORDERED: cefTRIAXone 1 gm/50 mL NS BAG 1 GM/50 ML BAG IVPB SCH (11:00)
[2020-01-21 12:25] VITALS: BP 132/68
== END 2020-01-21 13:35 | disposition home or self-care (01) ==
LOC: ED 14:07 → SSU 14:07
PROVIDERS: ADMIT Internal Medicine; ATTEND Internal Medicine

== ENCOUNTER 2023-12-08 09:59 | Observation (INO) ==
[~2023-12-08 09:59] MED LIST changes: -Acetaminophen TAB* 325 MG PO PRN; -Buffered Lidocaine 1% SYRIN* 1 ML/SYRINGE INTRADERM ONE; -Dexamethasone IV* 4 MG/ML 1 ML (4 MG) ONE; -DiMENhydriNATE IV* 50 MG/ML VIAL IV PUSH PRN; -EPHEDrine (Pressors)* 50 MG/ML VIAL ONE; -Iohexol 180 (CONTRAST) 10 ML SDV IV ONE; -Ketorolac INJ* 30 MG/ML 1 ML VIAL ONE; -Lactated Ringers 1000 ML Bag* 1,000 ML IV SCH; -Lidocaine 2% PF * 5 ML VIAL ONE; -Metoclopramide IV* 5 MG/ML 2 ML VIAL ONE; -Midazolam* 1 MG/ML 2 ML VIAL (2 MG) ONE; -Morphine 4 MG/ML VIAL (1 ml) 4 MG/ML VIAL IV PRN; +NS 0.45% 1000 ml BAG 1,000 ML IV SCH; +Naloxone 0.4 mg VIAL 0.4 mg/ml 1 ml VIAL IV PRN; -Naloxone* 0.4 MG/ML 1 ML VIAL IV PRN; -Ondansetron INJ* 2 MG/ML VIAL ONE; -Phenylephrine 40 MCG/ML SYRINGE ONE; -Propofol* 10 MG/ML 20 ML BTL ONE; -cefTRIAXone(*) 2 GM ADDV.VIAL IVPB ONE; +fentaNYL 100 mcg/2 ml 50 MCG/ML VIAL IV PRN; -fentaNYL* 50 MCG/ML 2 ML VIAL (100 MCG VIAL) ONE
[2023-12-08] MEDS ORDERED: ceFAZolin 2 GM PREMIX 2 GM/50 ML BAG ONE (10:28)
[2023-12-08] MEDS ORDERED: Tranexamic Acid 1 GM/100ML BAG 2,000 MG/200 ML BAG IV ONE (10:37)
[2023-12-08 11:04] LABS: INR 1.04 (0.85-1.14)
[2023-12-08 11:06] LABS: Rapid COVID-19 Molecular Undetected (Undetected)
[2023-12-08] MEDS ORDERED: Dexamethasone IV 4 MG/ML VIAL 1 ml VIAL ONE (12:56)
[2023-12-08] MEDS ORDERED: Lidocaine 2% PF 5 ML VIAL ONE (12:56)
[2023-12-08] MEDS ORDERED: Propofol 10 MG/ML 20 ML BTL ONE (12:56)
[2023-12-08] MEDS ORDERED: Ondansetron 4 mg VIAL 2 MG/ML 2 ml VIAL ONE ×2 (12:56→17:09)
[2023-12-08] MEDS ORDERED: Rocuronium 50 mg VIAL 10 mg/ml 5 ml VIAL (50 mg) ONE (12:56)
[2023-12-08] MEDS ORDERED: Midazolam 5 mg/5 ml VIAL 1 mg/ml 5 ml VIAL (5 mg) ONE (12:57)
[2023-12-08] MEDS ORDERED: fentaNYL 100 mcg/2 ml 50 MCG/ML VIAL ONE (12:57)
[2023-12-08] MEDS ORDERED: ROPIVACAINE 5 MG/ML 30 ML BTL (0.5%) ONE (13:02)
[2023-12-08] MEDS ORDERED: Lactulose 30 ml UDC PO PRN (13:55)
[2023-12-08] MEDS ORDERED: Ondansetron 4 mg VIAL 2 MG/ML 2 ml VIAL IV PRN (13:55)
[2023-12-08] MEDS ORDERED: Magnesium Hydroxide LIQ 30 ML UDC PO PRN (13:55)
[2023-12-08] MEDS ORDERED: Calcium Carb (TUMS) 500 mg CHEW TAB PO PRN (13:55)
[2023-12-08] MEDS ORDERED: Morphine 2 MG/ML SYRINGE IV PRN (13:55)
[2023-12-08] MEDS ORDERED: Ondansetron ODT 4 mg TAB 4 MG TAB PO PRN (13:55)
[2023-12-08] MEDS ORDERED: HYDROmorphone 0.5 MG/0.5 ML SYRINGE ONE ×2 (14:03→15:33)
[2023-12-08] MEDS: Ondansetron 4 mg VIAL 2 MG/ML 2 ml VIAL IV PRN (17:14)
[2023-12-08] MEDS ORDERED: Prochlorperazine 5 mg/ml 2 ml VIAL (10 mg) ONE (17:34)
[2023-12-08] MEDS: Prochlorperazine 5 mg/ml 2 ml VIAL (10 mg) IV PRN (17:41)
[2023-12-08] MEDS: Lactated Ringers 1000 ml BAG 1,000 ML IV SCH ×2 (18:58→18:59)
[2023-12-08] MEDS: Acetaminophen IV 1 GM/100ML 1,000 MG/100 ML BAG IV ONE (18:59)
[2023-12-08] MEDS: Buffered Lidocaine 1% SYRIN 1 ml INTRADERM ONE (18:59)
[2023-12-08] MEDS: DULoxetine DR 30 mg CAP PO SCH (20:19)
[2023-12-08] MEDS: Morphine ER 15 mg TAB ** extended release PO SCH (20:21)
[2023-12-08] MEDS: Magnesium Hydroxide LIQ 30 ML UDC PO SCH (20:55)
[2023-12-08] MEDS: ceFAZolin 2 GM PREMIX 2 GM/50 ML BAG IV SCH (22:55)
[2023-12-09 05:29] LABS: Hematocrit 30.2 % (35-45); Hemoglobin 9.8 g/dL (11.5-14.3); Mean Platelet Volume 7.9 fL (7.5-11.2); Platelet Count 161 10^3/uL (150-450)
[2023-12-09 05:44] LABS: INR 1.09 (0.85-1.14)
[2023-12-09 05:59] LABS: Calcium 8.6 mg/dL (8.6-10.3); Creatinine, Serum 0.73 mg/dL (0.51-0.95); Potassium 4.6 mmol/L (3.5-5.0); eGFR CKD-EPI 86.2 (>60)
[2023-12-09] MEDS: Vitamin THERAPEUTIC TAB PO SCH (08:37)
[2023-12-09] MEDS: Enoxaparin 100 MG/ML SYR SUBCUT SCH (08:43)
[2023-12-09 11:11] LABS: Hematocrit 30.5 % (35-45); Hemoglobin 10.3 g/dL (11.5-14.3)
[2023-12-09] MEDS ORDERED: Enoxaparin 40 MG/0.4 ML SYR SUBCUT SCH (12:00)
[2023-12-09 14:03] VITALS: BP 115/50
== END 2023-12-09 15:05 | disposition home or self-care (01) ==
LOC: SSU 09:59 → OR 09:59
PROVIDERS: ADMIT Orthopaedic Surgery Adult Reconstructive Orthopaedic Surgery; ATTEND Orthopaedic Surgery Adult Reconstructive Orthopaedic Surgery